=== PATIENT | female | born 1965 | race Caucasian/White ===

== ENCOUNTER 2018-04-19 09:35 | Emergency (ER) | payer OTHER, SELFPAY ==
[2018-04-19 09:37] VITALS: BP 158/85; PULSE 90; RESP 18; TEMP 37; O2SAT 97
--- NOTE | 2018-04-19 10:04 | DI.US_ITS ---
SYMPTOM/DIAGNOSIS: LT LEG SWELLING, PALPABLE CORD, REDNESS, PAIN LEFT LOWER EXTREMITY ULTRASOUND: The deep veins of the left lower extremity show normal compression, augmentation and color flow. No evidence of a deep venous thrombus is identified. There is thrombus seen in various superficial veins including the mid portion of the small saphenous vein and the distal greater saphenous vein. There is non occlusive thrombus seen in the mid greater saphenous vein. No evidence of a popliteal cyst is seen. IMPRESSION: 1. No evidence of a left lower extremity deep venous thrombus. 2. Superficial thrombophlebitis.
--- NOTE | 2018-04-19 10:05 | W.ED.GENAD ---
Discharge Plan Discharge Details Chief Complaint: Orthopedic Primary Care Provider: Tyler Kaiser ED Provider: Manas Warner Home Meds and New Rx's Prescriptions: No Action tamoxifen 20 MG tablet 20 mg PO DAILY RF: 0 esomeprazole magnesium [Nexium] 40 MG capsule,delayed release(DR/EC) 40 mg PO DAILY RF: 0 citalopram 20 MG tablet 20 mg PO DAILY Qty: 90 RF: 3 gabapentin 100 MG capsule 100 mg PO q day -BID Qty: 60 RF: 0 Medical Decision Making Delightful 52-year-old female presents with days of left lower extremity pain and swelling after [id number] [place], [place]. She is well-appearing with normal vital signs, her exam reveals a palpable cord and erythema overlying the medial aspect of her left lower thigh & knee. Highly concerning for DVT. Patient underwent ultrasound which shows superficial venous thrombosis of the greater saphenous and lesser saphenous vein without evidence of true DVT. Screening laboratories including CBC, comprehensive panel with LFTs and PT/INR are unremarkable. There is concern that she may progress to true DVT; discussed with the patient that I will have her use moist heat and begin a daily aspirin. She has planned follow-up this coming Friday, and I will have her discuss repeat ultrasound with her primary care office. She will follow-up in primary care clinic Friday as planned. Lab Data Lab results reviewed: Yes I reviewed the patient's lab results. HPI General Mode of arrival: ambulatory. Date/Time Provider Initiated Documentation: 04/19/18 09:57. Limitations to Documentation: no limitations. Information obtained by: patient. History of Present Illness 52 year old F presents to the emergency department with the chief complaint of Left leg swelling, described as moderate, Quality is described as aching, and is localized to the left and lower extremity. Patient reports no radiation. Patient started experiencing this day(s) and it has been constant. No relieving factors improve symptom(s), No exacerbating factors reported . Patient notes no other symptoms.; denies cough and shortness of breath. Patient did receive the following treatments prior to arrival, none HPI Narrative: 52-year-old female on tamoxifen for stable breast cancer, who [place] [facility], driving home and they are in between, for a [employer] game. She presents with the gradual onset of left lower extremity pain and swelling from the distal thigh to below the knee over days time. It has been constant, without associated fever or constitutional symptoms. She has no chest pain or shortness of breath. No history of DVT. She denies any other complaints Related Data Home Medications Medication Instructions Recorded Confirmed tamoxifen 20 mg PO DAILY tab-cap 09/14/14 04/19/18 esomeprazole magnesium [Nexium] 40 mg PO DAILY 05/22/15 04/19/18 citalopram 20 mg PO DAILY #90 tab-cap 02/04/18 04/19/18 gabapentin 100 mg PO q day -BID #60 tab-cap 03/10/18 04/19/18 Previous Rx's Medication Instructions Recorded citalopram 20 mg PO DAILY #90 tab-cap 02/04/18 gabapentin 100 mg PO q day -BID #60 tab-cap 03/10/18 Allergies Allergy/AdvReac Type Severity Reaction Status Date / Time No Known Drug Allergies Allergy Unverified 04/19/18 09:39 General Stated Complaint: Orthopedic DARIEL: 3 Review of Systems Review of Systems 7 systems reviewed and otherwise neg PFSH Family History Mother No problems noted. Father Atherosclerosis of coronary artery Grandmother Personal history of malignant neoplasm Maternal Cousin Breast cancer Maternal Cousin Breast cancer Other Depression Social History Smoking/Tobacco Use Status: Former Tobacco Use Surgical History Breast, Lumpectomy (06/22/13) section Ligation of fallopian tube Exam Narrative Exam Narrative: GEN: awake, alert, oriented 3. Pleasant, well groomed, interactive. HEAD: Normocephalic, atraumatic ENT: Mucous membranes moist, oropharynx unremarkable, External ear exam unremarkable EYES: PERRL, EOMI NECK: Full ROM, no WILLIAM, no menigismus CHEST/RESP: Nontender, clear to auscultation bilateral, no wheeze/rhonchi/rales CARDIOVASCULAR: RRR, no murmur, rub lyubov. 2+ Rad pulse bilateral ABDOMEN: Soft, nontender, no mass. +Bowel sounds EXT: Full ROM, the left medial thigh, popliteal crease and proximal calf medially are erythematous with palpable cord and tenderness. Normal distal motor, sensory, vascular testing Neuro: Grossly normal neurologic exam, conversant, interactive. Psych: Speech fluent, thoughts congruent, affect normal Course Vital Signs Temperature 37 C 04/19/18 09:37 Pulse 90 04/19/18 09:37 Respiratory Rate 18 04/19/18 09:37 Blood Pressure 158/85 H 04/19/18 09:37 Pulse Oximetry 97 04/19/18 09:37 Temperature 37 C 04/19/18 09:37 Temperature Source Temporal Artery Scan 04/19/18 09:37 Pulse 90 04/19/18 09:37 Respiratory Rate 18 04/19/18 09:37 Respiratory Effort 04/19/18 09:39 Blood Pressure 158/85 H 04/19/18 09:37 Pulse Oximetry 97 04/19/18 09:37 Oxygen Delivery Method Room Air 04/19/18 09:37 Oxygen Flow Rate 0 04/19/18 09:37 Pain Level 7 04/19/18 09:37
--- NOTE | 2018-04-19 10:10 | ED.GENADUL_ITS ---
Discharge Plan Discharge Details Chief Complaint: Orthopedic Primary Care Provider: Tyler Kaiser ED Provider: Manas Warner Home Meds and New Rx's Prescriptions: No Action tamoxifen 20 MG tablet 20 mg PO DAILY RF: 0 esomeprazole magnesium [Nexium] 40 MG capsule,delayed release(DR/EC) 40 mg PO DAILY RF: 0 citalopram 20 MG tablet 20 mg PO DAILY Qty: 90 RF: 3 gabapentin 100 MG capsule 100 mg PO q day -BID Qty: 60 RF: 0 Medical Decision Making Delightful 52-year-old female presents with days of left lower extremity pain and swelling after [facility] [place], [place]. She is well-appearing with normal vital signs, her exam reveals a palpable cord and erythema overlying the medial aspect of her left lower thigh & knee. Highly concerning for DVT. Patient underwent ultrasound which shows superficial venous thrombosis of the greater saphenous and lesser saphenous vein without evidence of true DVT. Screening laboratories including CBC, comprehensive panel with LFTs and PT/INR are unremarkable. There is concern that she may progress to true DVT; discussed with the patient that I will have her use moist heat and begin a daily aspirin. She has planned follow-up this coming Friday, and I will have her discuss repeat ultrasound with her primary care office. She will follow-up in primary care clinic Friday as planned. Lab Data Lab results reviewed: Yes I reviewed the patient's lab results. HPI General Mode of arrival: ambulatory . Date/Time Provider Initiated Documentation: 04/19/18 09:57 . Limitations to Documentation: no limitations . Information obtained by: patient . History of Present Illness 52 year old F presents to the emergency department with the chief complaint of Left leg swelling, described as moderate, Quality is described as aching, and is localized to the left and lower extremity. Patient reports no radiation. Patient started experiencing this day(s) and it has been constant. No relieving factors improve symptom(s), No exacerbating factors reported . Patient notes no other symptoms.; denies cough and shortness of breath. Patient did receive the following treatments prior to arrival, none HPI Narrative: 52-year-old female on tamoxifen for stable breast cancer, who [place] [facility], driving home and they are in between, for a [employer] game. She presents with the gradual onset of left lower extremity pain and swelling from the distal thigh to below the knee over days time. It has been constant, without associated fever or constitutional symptoms. She has no chest pain or shortness of breath. No history of DVT. She denies any other complaints Related Data Home Medications Medication Instructions Recorded Confirmed tamoxifen 20 mg PO DAILY tab-cap 09/14/14 04/19/18 esomeprazole magnesium [Nexium] 40 mg PO DAILY 05/22/15 04/19/18 citalopram 20 mg PO DAILY #90 tab-cap 02/04/18 04/19/18 gabapentin 100 mg PO q day -BID #60 tab-cap 03/10/18 04/19/18 Previous Rx's Medication Instructions Recorded citalopram 20 mg PO DAILY #90 tab-cap 02/04/18 gabapentin 100 mg PO q day -BID #60 tab-cap 03/10/18 Allergies Allergy/AdvReac Type Severity Reaction Status Date / Time No Known Drug Allergies Allergy Unverified 04/19/18 09:39 General Stated Complaint: Orthopedic DARIEL: 3 Review of Systems Review of Systems 7 systems reviewed and otherwise neg PFSH Family History Mother No problems noted. Father Atherosclerosis of coronary artery Grandmother Personal history of malignant neoplasm Maternal Cousin Breast cancer Maternal Cousin Breast cancer Other Depression Social History Smoking/Tobacco Use Status: Former Tobacco Use Surgical History Breast, Lumpectomy (06/22/13) section Ligation of fallopian tube Exam Narrative Exam Narrative: GEN: awake, alert, oriented 3. Pleasant, well groomed, interactive. HEAD: Normocephalic, atraumatic ENT: Mucous membranes moist, oropharynx unremarkable, External ear exam unremarkable EYES: PERRL, EOMI NECK: Full ROM, no WILLIAM, no menigismus CHEST/RESP: Nontender, clear to auscultation bilateral, no wheeze/rhonchi/rales CARDIOVASCULAR: RRR, no murmur, rub lyubov. 2+ Rad pulse bilateral ABDOMEN: Soft, nontender, no mass. +Bowel sounds EXT: Full ROM, the left medial thigh, popliteal crease and proximal calf medially are erythematous with palpable cord and tenderness. Normal distal motor, sensory, vascular testing Neuro: Grossly normal neurologic exam, conversant, interactive. Psych: Speech fluent, thoughts congruent, affect normal Course Vital Signs Temperature 37 C 04/19/18 09:37 Pulse 90 04/19/18 09:37 Respiratory Rate 18 04/19/18 09:37 Blood Pressure 158/85 H 04/19/18 09:37 Pulse Oximetry 97 04/19/18 09:37 Temperature 37 C 04/19/18 09:37 Temperature Source Temporal Artery Scan 04/19/18 09:37 Pulse 90 04/19/18 09:37 Respiratory Rate 18 04/19/18 09:37 Respiratory Effort 04/19/18 09:39 Blood Pressure 158/85 H 04/19/18 09:37 Pulse Oximetry 97 04/19/18 09:37 Oxygen Delivery Method Room Air 04/19/18 09:37 Oxygen Flow Rate 0 04/19/18 09:37 Pain Level 7 04/19/18 09:37
[2018-04-19 10:28] LABS: Abs Immature Grans 0.02 k/cumm (0.0-0.09); Absolute Basophil Count 0.02 k/cumm (0.0-0.2); Absolute Eosinophil Count 0.21 k/cumm (0.0-0.7); Absolute Lymphocyte Count 1.56 k/cumm (1.2-3.4); Absolute Monocyte Count 0.43 k/cumm (0.11-0.7); Absolute Neutrophil Count 3.24 k/cumm (1.2-6.7); Basophils % 0.4; Eosinophils % 3.8; HCT 40.2 % (36.0-46.0); HGB 12.7 g/dL (12.0-15.5); Immature Grans % 0.4; Lymphocytes % 28.5; Mean Corp. HGB Concentration 31.6 g/dL (32.0-36.0); Mean Corpuscular Hemoglobin 28.1 pg (27.0-33.0); Mean Corpuscular Volume 88.9 fL (80-95); Mean Platelet Volume 9.8 fL (8.0-11.0); Monocytes % 7.8; Neutrophils % 59.1; Platelet Count 220 x1000/uL (130-400); RBC 4.52 m/cumm (4.00-5.20); RBC Distribution Width 15.7 % (11.7-14.6); White Blood Cell Count 5.48 k/cumm (4.4-10.8)
[2018-04-19 10:39] LABS: Prothrombin Time 9.5 sec (9.3-10.8)
[2018-04-19 10:42] LABS: ALT 36 U/L (12-78); AST 27 U/L (15-37); Albumin 3.3 g/dL (3.4-5.0); Alkaline Phosphatase 112 U/L (46-116); Anion Gap 7.3 mmol/L (3-11); BUN 15 mg/dL (7-18); Bilirubin, Total 0.3 mg/dL (0.2-1.0); CO2 29.7 mmol/L (21.0-32.0); CREATININE 0.94 mg/dL (0.55-1.02); Calcium 9.4 mg/dL (8.5-10.1); Chloride 103 mmol/L (98-107); Glucose 86 mg/dL (70-100); Potassium 4.1 mmol/L (3.5-5.1); Sodium 140 mmol/L (136-145)
[2018-04-19 11:37] VITALS: BP 158/85; PULSE 90; RESP 18; TEMP 37; O2SAT 97
--- NOTE | 2018-04-19 11:53 | DI.VRAD_ITS ---
EXAM: US Duplex Left Lower Extremity Veins EXAM DATE/TIME: 04/19/2018 10:05 AM CLINICAL HISTORY: 52 years old, female; Pain; Other: Left leg swelling, palpable cord TECHNIQUE: Real-time ultrasound scan of the veins on the Left lower extremity with 2-D perez scale, color Doppler flow and spectral waveform analysis. Examination was focused on the left lower extremity. COMPARISON: No relevant prior studies available. FINDINGS: Left deep veins: Unremarkable. No DVT in the common femoral, femoral or popliteal veins. There is positive augmention. Left superficial veins: Superficial thrombus at multiple levels, with occlusion of the left mid small saphenous vein and left distal greater saphenous vein. Nonocclusive thrombus in the mid greater saphenous vein. Soft tissues: Unremarkable. No popliteal cyst. IMPRESSION: 1. Superficial thrombus at multiple levels, with occlusion of the left mid small saphenous vein and left distal greater saphenous vein. Nonocclusive thrombus in the mid greater saphenous vein. 2. Negative for deep venous thrombosis. Dictated and Authenticated by: Alana Barkley MD. Ordering:JERSON ANDERSEN MD
== END 2018-04-19 11:38 | disposition home or self-care (01) ==
PROVIDERS: Emergency Provider Emergency Medicine; PCP Family Medicine
DX: I80.02 Phlebitis and thrombophlebitis of superficial vessels of left lower extremity (principal)
CPT/HCPCS: 36415; 80053; 99284; 85025; 85610; 93971; 99282

== ENCOUNTER 2018-05-05 17:55 | Emergency (ER) | payer OTHER, SELFPAY ==
[2018-05-05 18:38] VITALS: BP 133/83; PULSE 68; RESP 14; TEMP 37.1; O2SAT 99
--- NOTE | 2018-05-05 20:05 | W.ED.GENAD ---
Discharge Plan Disposition Patient Disposition: HOME Condition: Good Discharge Details Chief Complaint: Vascular Clinical Impression: Thrombophlebitis of left lower extremity Primary Care Provider: yTler Kaiser ED Provider: Kane Norwood Home Meds and New Rx's Prescriptions: New rivaroxaban [Xarelto] 10 mg tablet 10 mg PO DAILY Qty: 20 RF: 0 Continue gabapentin 100 mg capsule 100 mg PO q day -BID Qty: 180 RF: 1 tamoxifen 20 MG tablet 20 mg PO DAILY RF: 0 esomeprazole magnesium [Nexium] 40 MG capsule,delayed release(DR/EC) 40 mg PO DAILY RF: 0 citalopram 20 MG tablet 20 mg PO DAILY Qty: 90 RF: 3 Discontinued aspirin 325 mg tablet 325 mg PO DAILY RF: 0 Discharge Instructions Instructions: Rivaroxaban (By mouth) Additional Instructions: Discontinue the aspirin and do not use any type of NSAID medication while on Xarelto. Use Tylenol if needed for pain. Continue warm compresses. Ultrasound ordered for tomorrow, radiology should contact you with time. Follow up with PCP Friday (case management will help facilitate). Return to ED for any chest pain, shortness of breath, fainting, bleeding, head injury. Referrals: Tyler Kaiser. [Primary Care Provider] - Medical Decision Making Patient with evidence of worsening superficial thrombophlebitis as well as palpable cord in the proximal greater saphenous in the medial thigh. She has been using warm compresses and full dose aspirin a day. She has not had fevers, shortness of breath, chest pain. However, she does have a prior history of cancer but has been in remission for at least 4 years. Concern for DVT despite negative ultrasound on the . The fact that she has a palpable cord in the medial thigh is highly suggestive of greater saphenous involvement near the femoral vein. She also has worsening superficial thrombophlebitis despite aspirin. She does not look toxic. I do not think she has supprative thrombophlebitis. I do not think she needs antibiotics. I do think she should probably be started on Xarelto. We will schedule an ultrasound for tomorrow. Will have follow-up with her primary care this week. Laboratory studies ordered prior to starting Xarelto. CBC, liver function, kidney function were all normal. Discussed the risk and benefit of starting Xarelto. Discussed what to do return to the emergency department for. Ultrasound ordered for tomorrow. Patient placed on care management list to help facilitate follow-up with primary care this week on Friday. Medical Records Medical records reviewed: Yes I reviewed the patient's medical records. Lab Data Lab results reviewed: Yes I reviewed the patient's lab results. HPI General Mode of arrival: ambulatory. Date/Time Provider Initiated Documentation: 05/05/18 19:28. Limitations to Documentation: no limitations. Information obtained by: patient and old records reviewed. HPI Narrative: Patient presents to ED with worsening thrombophlebitis to the left lower extremity. She was seen here previously on April 19 and diagnosed with superficial thrombophlebitis involving the small saphenous and distal greater saphenous vein. She was put on warm compresses and nonsteroidals. Over the last week she has had increased areas of pain, redness. She now has it anteriorly on her thigh as well as posteriorly and more medially. She does not have deep leg pain. She does not have leg swelling. She has not have chest pain, shortness of breath, cough, fever. Previous ultrasound from the was negative for DVT Related Data Home Medications Medication Instructions Recorded Confirmed tamoxifen 20 mg PO DAILY tab-cap 09/14/14 05/05/18 esomeprazole magnesium [Nexium] 40 mg PO DAILY 05/22/15 05/05/18 citalopram 20 mg PO DAILY #90 tab-cap 02/04/18 05/05/18 gabapentin 100 mg capsule 100 mg PO q day -BID #180 tab-cap 04/24/18 05/05/18 rivaroxaban [Xarelto] 10 mg PO DAILY #20 tab 05/05/18 Previous Rx's Medication Instructions Recorded citalopram 20 mg PO DAILY #90 tab-cap 02/04/18 gabapentin 100 mg capsule 100 mg PO q day -BID #180 tab-cap 04/24/18 rivaroxaban [Xarelto] 10 mg PO DAILY #20 tab 05/05/18 Allergies Allergy/AdvReac Type Severity Reaction Status Date / Time No Known Drug Allergies Allergy Verified 05/05/18 18:43 General Stated Complaint: Vascular DARIEL: 3 Review of Systems Constitutional Denies chills, Denies fatigue, Denies fever(s), Denies headache(s) and Denies malaise Eyes Denies eye discharge, Denies loss of vision and Denies eye pain ENT Denies otalgia, Denies headache(s) and Denies sore throat Cardiovascular Denies chest pain, Denies diaphoresis, Denies syncope, Denies pedal edema, Denies leg edema, Denies lightheadedness, Denies palpitations and Denies dyspnea Respiratory Denies cough and Denies dyspnea Gastrointestinal Denies abdominal pain, Denies melena, Denies hematochezia, Denies coffee ground emesis, Denies diarrhea, Denies nausea and Denies vomiting Genitourinary Denies hematuria and Denies dysuria Musculoskeletal Denies back pain, Denies myalgias, Denies arthralgias and Denies numbness Integumentary/Breasts Denies new lesions, Reports erythema, Denies rash, Denies sores and Denies wounds Neurologic Denies syncope, Denies headache(s), Denies focal weakness, Denies loss of vision and Denies numbness Endocrine Denies fatigue and Denies palpitations PFSH Family History Mother No problems noted. Father Atherosclerosis of coronary artery Grandmother Personal history of malignant neoplasm Maternal Cousin Breast cancer Maternal Cousin Breast cancer Other Depression Social History frequency: 3-4 times per week duration: 15-30 minutes/day Smoking/Tobacco Use Status: Former Tobacco Use alcohol intake: current alcohol intake frequency: holidays/special occasions only substance use type: does not use seatbelt use: always Surgical History Breast, Lumpectomy (06/22/13) section Ligation of fallopian tube Exam Const General: cooperative and no acute distress Nutritional Appearance: obese Orientation: alert and oriented x3 [facility] Head: normocephalic and atraumatic Neck Neck: normal visual inspection, full ROM, trachea midline and supple Resp Effort & Inspection: normal respiratory effort Auscultation: clear to auscultation bilaterally Cardio Rate: regular rate Rhythm: regular rhythm Heart Sounds: S1 normal and S2 normal Skin General skin exam: erythema (Areas of streaking erythema anterior, posterior, medial thigh) Lesions: no lesions Rashes: no rashes Neuro General: alert, oriented x3, no focal motor deficits and CN's II-XI intact bilaterally Extrem General: normal to inspection, full ROM, no calf tenderness, no edema and other (Palpable cords associated with the areas of streaking erythema especially in the medial aspect of the thigh appear, minimally tender.) Course Vital Signs Temperature 98.8 F 05/05/18 18:38 Pulse 68 10 18:38 Respiratory Rate 14 05/05/18 18:38 Blood Pressure 133/83 10 18:38 Pulse Oximetry 99 05/05/18 18:38 Temperature 98.8 F 05/05/18 18:38 Temperature Source Temporal Artery Scan 05/05/18 18:38 Pulse 68 10 18:38 Respiratory Rate 14 05/05/18 18:38 Respiratory Effort Non-Labored 05/05/18 18:41 Blood Pressure 133/83 05/05/18 18:38 Blood Pressure Position Sitting 05/05/18 18:38 Pulse Oximetry 99 05/05/18 18:38 Oxygen Delivery Method Room Air 05/05/18 18:38 Oxygen Flow Rate 0 05/05/18 18:38 Pain Level 6 05/05/18 18:38
--- NOTE | 2018-05-05 20:12 | ED.GENADUL_ITS ---
Discharge Plan Disposition Patient Disposition: HOME Condition: Good Discharge Details Chief Complaint: Vascular Clinical Impression: Thrombophlebitis of left lower extremity Primary Care Provider: Tyler Kaiser ED Provider: Kane Norwood Home Meds and New Rx's Prescriptions: New rivaroxaban [Xarelto] 10 mg tablet 10 mg PO DAILY Qty: 20 RF: 0 Continue gabapentin 100 mg capsule 100 mg PO q day -BID Qty: 180 RF: 1 tamoxifen 20 MG tablet 20 mg PO DAILY RF: 0 esomeprazole magnesium [Nexium] 40 MG capsule,delayed release(DR/EC) 40 mg PO DAILY RF: 0 citalopram 20 MG tablet 20 mg PO DAILY Qty: 90 RF: 3 Discontinued aspirin 325 mg tablet 325 mg PO DAILY RF: 0 Discharge Instructions Instructions: Rivaroxaban (By mouth) Additional Instructions: Discontinue the aspirin and do not use any type of NSAID medication while on Xarelto. Use Tylenol if needed for pain. Continue warm compresses. Ultrasound ordered for tomorrow, radiology should contact you with time. Follow up with PCP Friday (case management will help facilitate). Return to ED for any chest pain, shortness of breath, fainting, bleeding, head injury. Referrals: Tyler Kaiser. [Primary Care Provider] - Medical Decision Making Patient with evidence of worsening superficial thrombophlebitis as well as palpable cord in the proximal greater saphenous in the medial thigh. She has been using warm compresses and full dose aspirin a day. She has not had fevers , shortness of breath, chest pain. However, she does have a prior history of cancer but has been in remission for at least 4 years. Concern for DVT despite negative ultrasound on the . The fact that she has a palpable cord in the medial thigh is highly suggestive of greater saphenous involvement near the femoral vein. She also has worsening superficial thrombophlebitis despite aspirin. She does not look toxic. I do not think she has supprative thrombophlebitis. I do not think she needs antibiotics. I do think she should probably be started on Xarelto. We will schedule an ultrasound for tomorrow. Will have follow-up with her primary care this week. Laboratory studies ordered prior to starting Xarelto. CBC, liver function, kidney function were all normal. Discussed the risk and benefit of starting Xarelto. Discussed what to do return to the emergency department for. Ultrasound ordered for tomorrow. Patient placed on care management list to help facilitate follow-up with primary care this week on Friday. Medical Records Medical records reviewed: Yes I reviewed the patient's medical records. Lab Data Lab results reviewed: Yes I reviewed the patient's lab results. HPI General Mode of arrival: ambulatory . Date/Time Provider Initiated Documentation: 05/05/18 19:28 . Limitations to Documentation: no limitations . Information obtained by: patient and old records reviewed . HPI Narrative: Patient presents to ED with worsening thrombophlebitis to the left lower extremity. She was seen here previously on April 19 and diagnosed with superficial thrombophlebitis involving the small saphenous and distal greater saphenous vein. She was put on warm compresses and nonsteroidals. Over the last week she has had increased areas of pain, redness. She now has it anteriorly on her thigh as well as posteriorly and more medially. She does not have deep leg pain. She does not have leg swelling. She has not have chest pain, shortness of breath, cough, fever. Previous ultrasound from the was negative for DVT Related Data Home Medications Medication Instructions Recorded Confirmed tamoxifen 20 mg PO DAILY tab-cap 09/14/14 05/05/18 esomeprazole magnesium [Nexium] 40 mg PO DAILY 05/22/15 05/05/18 citalopram 20 mg PO DAILY #90 tab-cap 02/04/18 05/05/18 gabapentin 100 mg capsule 100 mg PO q day -BID #180 tab-cap 04/24/18 05/05/18 rivaroxaban [Xarelto] 10 mg PO DAILY #20 tab 05/05/18 Previous Rx's Medication Instructions Recorded citalopram 20 mg PO DAILY #90 tab-cap 02/04/18 gabapentin 100 mg capsule 100 mg PO q day -BID #180 tab-cap 04/24/18 rivaroxaban [Xarelto] 10 mg PO DAILY #20 tab 05/05/18 Allergies Allergy/AdvReac Type Severity Reaction Status Date / Time No Known Drug Allergies Allergy Verified 05/05/18 18:43 General Stated Complaint: Vascular DARIEL: 3 Review of Systems Constitutional Denies chills, Denies fatigue, Denies fever(s), Denies headache(s) and Denies malaise Eyes Denies eye discharge, Denies loss of vision and Denies eye pain ENT Denies otalgia, Denies headache(s) and Denies sore throat Cardiovascular Denies chest pain, Denies diaphoresis, Denies syncope, Denies pedal edema, Denies leg edema, Denies lightheadedness, Denies palpitations and Denies dyspnea Respiratory Denies cough and Denies dyspnea Gastrointestinal Denies abdominal pain, Denies melena, Denies hematochezia, Denies coffee ground emesis, Denies diarrhea, Denies nausea and Denies vomiting Genitourinary Denies hematuria and Denies dysuria Musculoskeletal Denies back pain, Denies myalgias, Denies arthralgias and Denies numbness Integumentary/Breasts Denies new lesions, Reports erythema, Denies rash, Denies sores and Denies wounds Neurologic Denies syncope, Denies headache(s), Denies focal weakness, Denies loss of vision and Denies numbness Endocrine Denies fatigue and Denies palpitations PFSH Family History Mother No problems noted. Father Atherosclerosis of coronary artery Grandmother Personal history of malignant neoplasm Maternal Cousin Breast cancer Maternal Cousin Breast cancer Other Depression Social History frequency: 3-4 times per week duration: 15-30 minutes/day Smoking/Tobacco Use Status: Former Tobacco Use alcohol intake: current alcohol intake frequency: holidays/special occasions only substance use type: does not use seatbelt use: always Surgical History Breast, Lumpectomy (06/22/13) section Ligation of fallopian tube Exam Const General: cooperative and no acute distress Nutritional Appearance: obese Orientation: alert and oriented x3 [facility] Head: normocephalic and atraumatic Neck Neck: normal visual inspection, full ROM, trachea midline and supple Resp Effort & Inspection: normal respiratory effort Auscultation: clear to auscultation bilaterally Cardio Rate: regular rate Rhythm: regular rhythm Heart Sounds: S1 normal and S2 normal Skin General skin exam: erythema (Areas of streaking erythema anterior, posterior, medial thigh) Lesions: no lesions Rashes: no rashes Neuro General: alert, oriented x3, no focal motor deficits and CN's II-XI intact bilaterally Extrem General: normal to inspection, full ROM, no calf tenderness, no edema and other (Palpable cords associated with the areas of streaking erythema especially in the medial aspect of the thigh appear, minimally tender.) Course Vital Signs Temperature 98.8 F 05/05/18 18:38 Pulse 68 10 18:38 Respiratory Rate 14 05/05/18 18:38 Blood Pressure 133/83 10 18:38 Pulse Oximetry 99 05/05/18 18:38 Temperature 98.8 F 05/05/18 18:38 Temperature Source Temporal Artery Scan 05/05/18 18:38 Pulse 68 10 18:38 Respiratory Rate 14 05/05/18 18:38 Respiratory Effort Non-Labored 05/05/18 18:41 Blood Pressure 133/83 05/05/18 18:38 Blood Pressure Position Sitting 05/05/18 18:38 Pulse Oximetry 99 05/05/18 18:38 Oxygen Delivery Method Room Air 05/05/18 18:38 Oxygen Flow Rate 0 05/05/18 18:38 Pain Level 6 05/05/18 18:38
[2018-05-05 20:24] LABS: Abs Immature Grans 0.01 k/cumm (0.0-0.09); Absolute Basophil Count 0.01 k/cumm (0.0-0.2); Absolute Eosinophil Count 0.24 k/cumm (0.0-0.7); Absolute Lymphocyte Count 1.57 k/cumm (1.2-3.4); Absolute Monocyte Count 0.39 k/cumm (0.11-0.7); Absolute Neutrophil Count 4.43 k/cumm (1.2-6.7); Basophils % 0.2; Eosinophils % 3.6; HCT 37.1 % (36.0-46.0); HGB 12.1 g/dL (12.0-15.5); Immature Grans % 0.2; Lymphocytes % 23.6; Mean Corp. HGB Concentration 32.6 g/dL (32.0-36.0); Mean Corpuscular Hemoglobin 28.4 pg (27.0-33.0); Mean Corpuscular Volume 87.1 fL (80-95); Mean Platelet Volume 9.3 fL (8.0-11.0); Monocytes % 5.9; Neutrophils % 66.5; Platelet Count 213 x1000/uL (130-400); RBC 4.26 m/cumm (4.00-5.20); RBC Distribution Width 15.2 % (11.7-14.6); White Blood Cell Count 6.65 k/cumm (4.4-10.8)
[2018-05-05 20:38] VITALS: BP 119/82; PULSE 75; RESP 18; TEMP 36.7; O2SAT 95
[2018-05-05 20:40] LABS: ALT 26 U/L (12-78); AST 24 U/L (15-37); Albumin 3.3 g/dL (3.4-5.0); Alkaline Phosphatase 102 U/L (46-116); Anion Gap 10.9 mmol/L (3-11); BUN 13 mg/dL (7-18); Bilirubin, Total 0.4 mg/dL (0.2-1.0); CO2 27.1 mmol/L (21.0-32.0); CREATININE 0.86 mg/dL (0.55-1.02); Calcium 8.8 mg/dL (8.5-10.1); Chloride 104 mmol/L (98-107); Glucose 84 mg/dL (70-100); Potassium 3.6 mmol/L (3.5-5.1); Sodium 142 mmol/L (136-145); Total Protein 6.8 g/dL (6.4-8.2)
[2018-05-05] MEDS: Rivaroxaban 10 MG TABLET PO (21:24)
--- NOTE | 2018-05-06 10:24 | PDOC.ERCMPRO ---
Care Management Progress Note 05/06/18-Pt seen on 05/05/18 for Left thrombophlebitis of lower extremity by Dr. Indira Norwood. Pt has scheduled ultrasound 05/06/18 . PCP dorothy/juan a blanchard for Friday with Dr. Lizz Kaiser at [facility] faxed.
== END 2018-05-05 21:26 | disposition home or self-care (01) ==
PROVIDERS: Emergency Provider Emergency Medicine; PCP Family Medicine
DX: I80.02 Phlebitis and thrombophlebitis of superficial vessels of left lower extremity (principal)
CPT/HCPCS: 36415; 80053; 99283; 85025

== ENCOUNTER 2018-05-06 10:06 | Outpatient (CLI) | payer OTHER, SELFPAY ==
--- NOTE | 2018-05-06 10:23 | DI.US_ITS ---
SYMPTOM/DIAGNOSIS: WORSENING SUPERFICIAL THROMBOPHLEBITIS, ? DVT LEFT LOWER EXTREMITY ULTRASOUND: The deep veins of the left lower extremity show normal compression, augmentation and color flow. There is a component of the greater saphenous vein which shows hypoechoic thrombus. The saphenofemoral junction appears unremarkable. No focal fluid collections are seen. IMPRESSION: 1. No evidence of a left lower extremity deep venous thrombus. 2. Superficial thrombophlebitis.
== END 2018-05-06 10:26 ==
PROVIDERS: PCP Family Medicine; Visit Provider Emergency Medicine
DX: I80.02 Phlebitis and thrombophlebitis of superficial vessels of left lower extremity (principal)
CPT/HCPCS: 93971

== ENCOUNTER 2018-07-17 00:57 | Outpatient (CLI) | payer OTHER, SELFPAY ==
--- NOTE | 2018-07-17 13:10 | DI.MAMMO_ITS ---
SYMPTOMS/DIAGNOSIS: SCREENING, PREVIOUS H/O BREAST CANCER ON RIGHT, C50.919 DIAGNOSTIC BILATERAL MAMMOGRAM: Comparison is made with exams from 2014 through 2017. The patient is status post lumpectomy in the upper outer quadrant of the right breast. The breasts are composed of scattered fibroglandular densities. No suspicious masses or suspicious microcalcifications are seen. There has been no significant change. IMPRESSION: Category 2B, negative mammogram with benign findings of post lumpectomy scarring in the upper outer quadrant of the right breast. Yearly screening mammography is recommended. SA ASSESSMENT OF FINDINGS: Negative with benign findings. Category 2. Patient will receive a letter notifying them of these results. BI-RADS category B. There are scattered areas of fibroglandular density.
== END 2018-07-17 01:17 ==
PROVIDERS: PCP Family Medicine; Visit Provider Family Medicine
DX: C50.411 Malignant neoplasm of upper-outer quadrant of right female breast (principal); Z98.890 Other specified postprocedural states; Z12.31 Encounter for screening mammogram for malignant neoplasm of breast
CPT/HCPCS: 77063; 77067

== ENCOUNTER 2018-07-17 08:10 | Outpatient (CLI) | payer OTHER, SELFPAY ==
[2018-07-17 12:26] LABS: Abs Immature Grans 0.01 k/cumm (0.0-0.09); Absolute Basophil Count 0.01 k/cumm (0.0-0.2); Absolute Eosinophil Count 0.11 k/cumm (0.0-0.7); Absolute Lymphocyte Count 1.42 k/cumm (1.2-3.4); Absolute Monocyte Count 0.33 k/cumm (0.11-0.7); Absolute Neutrophil Count 3.17 k/cumm (1.2-6.7); Basophils % 0.2; Eosinophils % 2.2; HCT 38.6 % (36.0-46.0); HGB 12.6 g/dL (12.0-15.5); Immature Grans % 0.2; Lymphocytes % 28.1; Mean Corp. HGB Concentration 32.6 g/dL (32.0-36.0); Mean Corpuscular Hemoglobin 28.9 pg (27.0-33.0); Mean Corpuscular Volume 88.5 fL (80-95); Mean Platelet Volume 9.7 fL (8.0-11.0); Monocytes % 6.5; Neutrophils % 62.8; Platelet Count 242 x1000/uL (130-400); RBC 4.36 m/cumm (4.00-5.20); RBC Distribution Width 15.5 % (11.7-14.6); White Blood Cell Count 5.05 k/cumm (4.4-10.8)
[2018-07-17 12:41] LABS: ALT 23 U/L (12-78); AST 20 U/L (15-37); Albumin 3.5 g/dL (3.4-5.0); Alkaline Phosphatase 93 U/L (46-116); BUN 14 mg/dL (7-18); Bilirubin, Total 0.4 mg/dL (0.2-1.0); CREATININE 0.93 mg/dL (0.55-1.02); Calcium 9.2 mg/dL (8.5-10.1); Chloride 103 mmol/L (98-107); Glucose 88 mg/dL (70-100); Sodium 138 mmol/L (136-145); Total Protein 7.1 g/dL (6.4-8.2)
== END 2018-07-17 08:30 ==
PROVIDERS: Internal Medicine Medical Oncology; PCP Family Medicine; Visit Provider Nurse Practitioner Family
DX: C50.411 Malignant neoplasm of upper-outer quadrant of right female breast (principal); Z17.0 Estrogen receptor positive status [ER+]
CPT/HCPCS: 36415; 80053; 85025

== ENCOUNTER 2018-07-17 13:02 | Outpatient (REF) | payer OTHER, SELFPAY ==
--- NOTE | 2018-07-17 11:25 | PAPFT_PTH ---
PATIENT: Nora Mendieta LOC: [facility] U#:[id number] AGE/SX: 52/F ROOM: RE07/17/[address]: SHARMILA Cabral : 1965 BED: DIS: 07/17/2018 SPEC #: [id number] RECD: 07/17/18 13:11 STATUS: TOMEKA REQ #: [id number] LEWIS: 07/17/18 11:[address]: Claudine May DEPT: [facility], [facility] Cytology RECD BY: Karla Yousif ENTERED: 07/17/18 13:11 SP TYPE: PAPFT OT DR: Tyler Kaiser MD Tissues: 1 - CX/ENDOCX FOR PAP SMEARS Procedures: PAP THIN PREP/UVM Screening HPV DNA PROBE Comments: [id number]
== END 2018-07-17 13:22 ==
LOC: LBN 13:02
PROVIDERS: PCP Family Medicine; Visit Provider Nurse Practitioner Family
DX: Z12.4 Encounter for screening for malignant neoplasm of cervix (principal); Z11.51 Encounter for screening for human papillomavirus (HPV)
CPT/HCPCS: 88142; 87624

== ENCOUNTER 2018-11-09 08:16 | Day surgery (SDC) | payer OTHER, SELFPAY ==
--- NOTE | 2018-11-09 06:36 | W.COLOREPORT ---
Date of service: 11/09/18 Time of Service: 09:07 Colonoscopy Report Date of procedure: 11/09/18 Pre-op diagnosis general: Family hx of colon cancer/ screening colonoscopy Post-op diagnosis procedure note: other (sigmoid polyps) Procedure: Colonoscopy with polypectomy Surgeon: Esther Woo Anesthesia proc note operative: other (General/ ASA 3/Rom Baig CRNA) Estimated blood loss (mL): 3 Pathology: other (Sigmoid polyps x2) Complications: None Disposition: same day Indications: Mrs. Mendieta is a pleasant 53 year old female seen in the office for her first Colonoscopy. He has a family history of colon cancer in her grandfather who was in his 60's. No Colon Cancer in a first degree relative. Risks, benefits and complications have been reviewed. Complications include but are not limited to bleeding, pain, perforation, missed small lesion/polyp, sore throat, aspiration and adverse reaction to the medications. Questions were entertained and answered to their satisfaction and they wished to proceed. No guarantees were given or implied. Prep: Miralax/Dulcolax Procedure Start Time: :07 Procedure End Time: 09:38 Retraction Time: 20 Findings: Small Hyperplastic appearing polyps in the sigmoid colon I was able to advance scope to the cecum. the appendiceal orifice was identified. I though I took a foto but none was printed Procedure Description: After informed consent was obtained the patient was taken to the procedure room and placed in a left decubitous position. Monitors were applied and a time out was done. The patients name, date of , procedure, allergies to medications and metal in their body was reviewed. The patient was then sedated. Once sedated and comfortable a rectal exam was done. External exam was normal. Internal exam revealed a normal sphincter tone and no palpable masses. The scope was then introduced and retro-flexed. Grade 1 internal hemorrhoids were identified. No polyps or masses noted in the rectum. The scope was then advanced to the cecum without difficulty. The TI and appendiceal orifice were identified. The prep was adequate. The scope was then slowly retracted over 20 minutes back into the rectum. Polyps were removed at in the sigmoid colon with cold forceps. The scope was removed and the patient was woken up and taken back to Same day surgery in stable condition. The patient tolerated the procedure well and there were no immediate complications. Follow up: The patient should follow up in 5 to 7 years unless they develop changes in bowel habits or other new gastrointestinal complaints.
--- NOTE | 2018-11-09 06:40 | PDOC.DSDIS_ITS ---
Discharge Plan Disposition Patient Disposition: HOME Condition: Good Discharge Details Reason For Visit: Colon Cancer Screening Attending Provider: Esther Woo Primary Care Provider: Tyler Kaiser Home Meds and New Rx's Prescriptions: Continued gabapentin 100 mg capsule 100 mg PO q day -BID Qty: 180 RF: 1 tamoxifen 20 MG tablet 20 mg PO DAILY RF: 0 esomeprazole magnesium [Nexium] 40 MG capsule,delayed release(DR/EC) 40 mg PO DAILY RF: 0 citalopram 20 MG tablet 20 mg PO DAILY Qty: 90 RF: 3 Discontinued polyethylene glycol 3350 17 gram/dose powder 238 g PO ONCE Qty: 238 RF: 0 bisacodyl [Dulcolax (bisacodyl)] 5 mg tablet,delayed release (DR/EC) 5 mg PO ONCE Qty: 4 RF: 0 Discharge Instructions Instructions: Colonoscopy (DC), Colorectal Polyps (DC) Additional Instructions: Findings: 2 small benign appearing polyps Follow up: 5-7 years Please call if you develop: fevers >101.5 Nausea or Vomiting Abdominal pain that is not transient DAY SURGERY UNIT POST COLONOSCOPY INSTRUCTIONS 1. Because there will be medication in your system for the next 24 hours, you may feel a little sleepy. Your coordination will be affected. Therefore: a. Do not drive or operate dangerous equipment for 24 hours. b. Do not drink alcohol beverages for 24 hours (not even beer). c. Plan to go home and rest for the day. 2. Generally there are no restrictions on your activity after a day or so has gone by, but you may feel a bit fatigued for a few days. 3 After you arrive home you may have a light meal and return to a normal diet as you can tolerate it without feeling sick to your stomach. 4. After surgery, you may feel pain or discomfort. This should be only samaniego sient, but if it persists please contact your doctor. 5. If there are any questions regarding the findings of your procedure, please feel free to contact your doctor. 6. If you are unable to contact your doctor with a problem, contact the hospital at [phone]. 7. Continue all your regular medications unless directed otherwise. I understand the above instructions and have no questions. Signature of Patient or Responsible Adult Escort Date/Time Name of Responsible Adult Escort Signature of Nurse Date/Time Stand Alone Forms: Sita William (DSU) Activity:: Activity as Tolerated Diet:: As Tolerated Discharge Orders Discharge Orders: Discharge Order (Routine); Ordered 11/09/18 Ordered By: Esther Woo DS: Diagnosis Discharge Diagnosis (1) S/P colonoscopy: Status: Acute (2) Colorectal polyps: Status: Acute
[2018-11-09 08:29] VITALS: BP 128/84; PULSE 77; RESP 16; TEMP 36.6; O2SAT 98
[2018-11-09] MEDS: Lactated Ringers 1,000 ML 80 ML IV (08:55)
--- NOTE | 2018-11-09 09:38 | BOWEL_PTH ---
PATIENT: Nora Mendieta LOC: [facility] U#:[id number] AGE/SX: 53/F ROOM: RE11/09/[address]: Esther Woo MD : 1965 BED: DIS: 11/09/2018 SPEC #: [id number] RECD: 11/09/18 12:47 STATUS: TOMEKA REQ #: [id number] LEWIS: 11/09/18 09:[address]: Esther Woo DEPT: Surgical Specimen RECD BY: Karla Yousif ENTERED: 11/09/18 12:48 SP TYPE: Bowel OTHR DR: Tyler Kaiser MD Tissues: 1 - BIOPSY BOWEL Procedures: GROSS AND MICRO LEVEL 4 Comments: [id number]
[2018-11-09 10:15] VITALS: BP 100/60; PULSE 57; RESP 16; TEMP 36.5; O2SAT 99
== END 2018-11-09 10:27 | disposition home or self-care (01) ==
LOC: SUR 08:17
PROVIDERS: PCP Family Medicine; Visit Provider Surgery
PROC: 0DJD8ZZ Inspection of Lower Intestinal Tract, Via Natural or Artificial Opening Endoscopic (ICD-10-PCS; CPT 45378; principal; 2018-11-09 08:45)
DX: Z12.11 Encounter for screening for malignant neoplasm of colon (principal); K63.5 Polyp of colon; K64.0 First degree hemorrhoids; Z80.0 Family history of malignant neoplasm of digestive organs; K21.9 Gastro-esophageal reflux disease without esophagitis
CPT/HCPCS: 45380; 88305; J3010

== ENCOUNTER 2019-08-12 00:51 | Outpatient (CLI) | payer OTHER, SELFPAY ==
--- NOTE | 2019-08-12 08:12 | DI.MAMMO_ITS ---
EXAM: MG MAMMO SCREENING 60 MIN DUR CLINICAL HISTORY: SCREENING, Z12.39, PERSONAL HX BREAST CA. TECHNIQUE: Full field digital CC and MLO mammographic images were obtained with 3D tomosynthesis and utilizing computer aided detection (CAD). COMPARISON: 2009 through 2017. FINDINGS: Breast Density - Category B - Scattered areas of fibroglandular density The patient is status post lumpectomy and radiation in the upper outer quadrant of the right breast. There is scarring in this area. There has been interval decrease in size of a previously noted xin gn circumscribed nodule in the subareolar right breast. No new masses or suspicious calcifications a re seen. There is motion on the left MLO view. Skin Thickening/Nipple Retraction: None. Axilla: Unremarkable. IMPRESSION: 1. Right breast BI-RADS category 2, negative with benign findings. No significant interval change wi th no specific features of malignancy noted. 2. Left breast BI-RADS category 0. A repeat left MLO is requested due to motion. A negative radiographic report should not delay biopsy if a dominant or clinically suspicious mass is present. Up to ten percent of cancers are not identified on mammography. A negative report may reinforce clinical impression. Adenosis and dense breasts may obscure an underlying neoplasm. False positive reports average 6 to 10%. Patient will receive a letter notifying them of these results.
== END 2019-08-12 01:11 ==
PROVIDERS: PCP Family Medicine; Visit Provider Family Medicine
DX: Z12.31 Encounter for screening mammogram for malignant neoplasm of breast (principal); Z85.3 Personal history of malignant neoplasm of breast; R92.8 Other abnormal and inconclusive findings on diagnostic imaging of breast; Z92.3 Personal history of irradiation
CPT/HCPCS: 77063; 77067

== ENCOUNTER 2019-08-12 01:36 | Outpatient (CLI) | payer OTHER, SELFPAY ==
[2019-08-12 09:25] LABS: Abs Immature Grans 0.01 k/cumm (0.0-0.09); Absolute Basophil Count 0.01 k/cumm (0.0-0.2); Absolute Eosinophil Count 0.09 k/cumm (0.0-0.7); Absolute Lymphocyte Count 1.17 k/cumm (1.2-3.4); Absolute Monocyte Count 0.33 k/cumm (0.11-0.7); Absolute Neutrophil Count 2.75 k/cumm (1.2-6.7); Basophils % 0.2; Eosinophils % 2.1; HCT 40.3 % (36.0-46.0); Immature Grans % 0.2 %; Lymphocytes % 26.8; Mean Corp. HGB Concentration 32.3 g/dL (32.0-36.0); Mean Platelet Volume 9.4 fL (8.0-11.0); Monocytes % 7.6; Neutrophils % 63.1; Platelet Count 292 x1000/uL (130-400); RBC 4.48 m/cumm (4.00-5.20); RBC Distribution Width 14.9 % (11.7-14.6); White Blood Cell Count 4.36 k/cumm (4.4-10.8)
[2019-08-12 09:36] LABS: ALT 24 U/L (14-59); AST 20 U/L (15-37); Albumin 3.3 g/dL (3.4-5.0); Alkaline Phosphatase 85 U/L (46-116); Anion Gap 7.9 mmol/L (3-11); BUN 11 mg/dL (7-18); Bilirubin, Total 0.3 mg/dL (0.2-1.0); CO2 29.1 mmol/L (21.0-32.0); CREATININE 0.83 mg/dL (0.55-1.02); Chloride 105 mmol/L (98-107); Glucose 122 mg/dL (74-106); Potassium 4.3 mmol/L (3.5-5.1); Sodium 142 mmol/L (136-145)
== END 2019-08-12 01:56 ==
PROVIDERS: PCP Family Medicine; Visit Provider Internal Medicine Hematology & Oncology
DX: C50.411 Malignant neoplasm of upper-outer quadrant of right female breast (principal); Z17.0 Estrogen receptor positive status [ER+]
CPT/HCPCS: 36415; 80053; 85025

== ENCOUNTER 2019-08-18 01:34 | Outpatient (CLI) | payer OTHER, SELFPAY ==
--- NOTE | 2019-08-18 10:15 | DI.MAMMO_ITS ---
EXAM: MG MAMMO SCREEN CALL BACK UNI CLINICAL HISTORY: F/U ABNL MAMMO, REPEAT LT MLO VIEW DUE TO MOTION. TECHNIQUE: Craniocaudal and mediolateral oblique Full Field Digital Mammography views of the left br east with Computer Aided Diagnosis followed by Tomosynthesis . COMPARISON: Priors available for comparison. FINDINGS: Mammography/Tomosynthesis: Masses/Architectural Distortion: None seen. Microcalcifictions: No suspicious pleomorphic-type are seen. Skin Thickening/Nipple Retraction: None. IMPRESSION: 1. No evidence of malignancy is noted. 2. Unless there is more urgent need, follow-up screening mammography is recommended, as per [place] [employer] guidelines. ACR BI-RAD Category- 1 Negative Breast Density - Category B - Scattered areas of fibroglandular density A negative radiographic report should not delay biopsy if a dominant or clinically suspicious mass is present. Up to ten percent of cancers are not identified on mammography. A negative report may reinforce clinical impression. Adenosis and dense breasts may obscure an underlying neoplasm. False positive reports average 6 to 10%. Patient will receive a letter notifying them of these results.
== END 2019-08-18 01:54 ==
PROVIDERS: PCP Family Medicine; Visit Provider Family Medicine
DX: Z12.31 Encounter for screening mammogram for malignant neoplasm of breast (principal); R92.8 Other abnormal and inconclusive findings on diagnostic imaging of breast; N64.59 Other signs and symptoms in breast
CPT/HCPCS: 77063; 77067

== ENCOUNTER 2019-09-02 12:31 | Outpatient (CLI) | payer OTHER, SELFPAY ==
--- NOTE | 2019-09-02 12:40 | DI.US_ITS ---
EXAM: US ABDOMEN CLINICAL HISTORY: RUQ abdominal pain, R10.11, ?gallstones TECHNIQUE: Ultrasound performed using standard protocol. COMPARISON: US LOWER EXTREMITY VASCULAR LT from 05/06/2018 FINDINGS: The visualized liver parenchyma is normal in appearance. There is cholelithiasis. Gallbladder wall is within normal limits and thickness. No pericholecystic fluid collection. No biliary dilatation. Negative sonographic Savage sign. The pancreas is unremarkable in appearance. Spleen is unremarkable. Kidneys are unremarkable with n o evidence of hydronephrosis or nephrolithiasis. Abdominal aorta and IVC are of normal diameter. IMPRESSION: Cholelithiasis. No other significant findings.
== END 2019-09-02 12:51 ==
PROVIDERS: PCP Family Medicine; Visit Provider Nurse Practitioner Family
DX: R10.11 Right upper quadrant pain (principal); K80.20 Calculus of gallbladder without cholecystitis without obstruction
CPT/HCPCS: 76700

== ENCOUNTER 2019-09-22 06:15 | Day surgery (SDC) | payer OTHER, SELFPAY ==
[2019-09-22] VITALS (9 sets, daily range): BP systolic 95–113; BP diastolic 49–77; PULSE 64–77; RESP 11–19; TEMP 35.8–36.7; O2SAT 94–100
[2019-09-22] MEDS: Acetaminophen 500 MG TAB 1000 MG PO (06:53)
[2019-09-22] MEDS: Celecoxib 200 MG CAP PO (06:53)
[2019-09-22] MEDS: Lactated Ringers 1,000 ML 80 ML IV ×2 (07:00→08:58)
[2019-09-22] MEDS: ceFAZolin 2 GM/50 ML BAG IVPB (07:52)
--- NOTE | 2019-09-22 08:41 | GB_PTH ---
PATIENT: Nora Mendieta LOC: [facility] U#:[id number] AGE/SX: 53/F ROOM: RE09/22/[address]: Esther Woo MD : 1965 BED: DIS: 09/22/2019 SPEC #: [id number] RECD: 09/22/19 12:29 STATUS: TOMEKA REQ #: [id number] LEWIS: 09/22/19 08:[address]: Esther Woo DEPT: Surgical Specimen RECD BY: Karla Yousif ENTERED: 09/22/19 12:29 SP TYPE: GB OTHR DR: Tyler Kaiser MD Tissues: 1 - GALLBLADDER Procedures: GROSS AND MICRO LEVEL 3 Comments: [id number]
[2019-09-22] MEDS: Bupivacaine 0.25% Pres-Free 30 ML VIAL (08:49)
--- NOTE | 2019-09-22 08:55 | PDOC.DSDIS_ITS ---
Discharge Plan Disposition Patient Disposition: HOME Condition: Good Discharge Details Reason For Visit: BILIARY COLIC Attending Provider: Esther Woo Primary Care Provider: Tyler Kaiser Home Meds and New Rx's Prescriptions: New acetaminophen [Tylenol] 325 mg capsule 650 mg PO Q6H PRN (Reason: pain) Qty: 30 RF: 0 ibuprofen 600 mg tablet 600 mg PO Q6H PRN (Reason: pain) Qty: 60 RF: 0 oxycodone 5 mg tablet 5 mg PO Q6H PRN (Reason: pain) Qty: 14 RF: 0 Continued tamoxifen 20 MG tablet 20 mg PO DAILY RF: 0 gabapentin 300 mg capsule 300 mg PO BID Qty: 60 RF: 5 clotrimazole-betamethasone [Lotrisone] 1-0.05 % cream 1 applic TP BID PRNRF: 0 citalopram 20 mg tablet 20 mg PO HS RF: 0 Discharge Instructions Instructions: Laparoscopic Cholecystectomy (DC) Additional Instructions: Activity at Home after surgery: 1. Make sure you walk outside at least 4 times per day 2. You should be able to climb a flight of stairs 3. No driving while in pain or taking pain medications 4. No strenuous activity or heavy lifting for 2 weeks (laparoscopic surgery) Diet, Nutrition, & wound healin. Avoid alcohol until after you are recovered from your surgery 2. Make sure to eat plenty of lean protein (meat, fish, eggs, cottage cheese, beans) 3. Eat a variety of fruits and vegetables. Eat plenty of high fiber foods to avoid constipation. 4. Drink plenty of liquids to stay hydrated and avoid constipation Pain Medications: 1. Alternate Tylenol 650 mg and Ibuprofen 600 mg every 3 hours 2. If a narcotic has been prescribed take as directed only for breakthrough pain For Constipation: 1. Take Milk of Magnesia or MiraLax as needed for constipation Other: 1. You may shower daily. Do not scrub the incisions 2. Do not soak the incisions for 1 week 3. You may alternate ice and heat as needed for pain and swelling Wound Care: 1. Keep the incisions clean and dry Please call our office if you develop: 1. Fevers >101.5 2. Nausea or Vomiting 3. Worsening pain 4. Redness and thick discharge from the wounds If after hours please call the Hospital at and ask to speak to the on-call surgeon Referrals: Esther Woo MD [ [facility] STAFF PHYSICIAN] - 10/08/19 9:00 am Activity:: No lifting, pulling and pushing >20 lb x 2 weeks Diet:: low fat Discharge Orders Discharge Orders: Discharge Order (Routine); Ordered 09/22/19 Ordered By: Esther Woo DS: Diagnosis Discharge Diagnosis (1) Biliary colic: Status: Acute (2) S/P laparoscopic cholecystectomy: Status: Acute
--- NOTE | 2019-09-22 09:06 | W.PM.OP ---
Date of service: 09/22/19 Time of Service: 09:07 Operative Note Operative Note DATE OF PROCEDURE: 09/22/19 PRE-OP DIAGNOSIS: Biliary Cholic POST-OP DIAGNOSIS: same PROCEDURE: Laparoscopic Cholecystectomy SURGEON: Esther Woo COMPRESSOR ENGINEER: Flaquita Pang ANESTHESIA: GETA ESTIMATED BLOOD LOSS: 50 PATHOLOGY: other (Galbladder) COMPLICATIONS: None Patient was transported to: PACU Patient's condition: stable Indications: Nora is a 53-year-old female who is had 3 attacks of right upper quadrant pain that radiates to her back. Ultrasound showed cholelithiasis without signs of acute or chronic inflammation. Her symptoms do sound like biliary colic even though it is not associated with eating. She does have a history of GERD as well but this feels different to her. She has no tenderness on exam today in the epigastric or right upper quadrant area Findings: Normal appearing Galbladder. Stones Procedure Description: After informed consent was obtained the patient was taken to the operating room, placed in a supine position and monitors were applied. SCDs were applied to her lower extremities and she was placed under general anesthesia and intubated without difficulty. Once intubated a Marina catheter was placed in a standard sterile fashion. Her abdomen was then prepped and draped in a sterile fashion using ChloraPrep. At this point a timeout was done and the patient's name, date of , procedure type, allergies to medications, metal in her body, antibiotic and DVT prophylaxis were reviewed. Fire risk was assessed. At this point 0.25% percent Bupivocaine mixed 50/50 with Exparel was injected just above the umbilicus into the dermis and subcutaneous tissue. A 5 mm incision was made with an 11 blade. The skin next to the incision was grasped with penetrating towel clamps and while pulling up on the skin a 5 mm port was placed under direct visualization. The abdomen was insufflated. The patient then became bradychardic and therefor the scope was removed and insufflation was released. The patient Heart Rate recovered. Once her Heart rate was back into the 60's the abdomen was insuflated again and then 3 more ports were placed. A 12 mm port was placed in the subxiphoid area and two 5 mm ports were placed in the right upper quadrant. The liver was inspected and looked normal. The patient's bed was then turned to the left and her head was brought up. The gallbladder was grasped at the body and pushed towards the right shoulder and this allowed me to visualize the neck of the gallbladder. The neck was grasped and pulled towards the right flank and down allowing me to visualize the lymph node. Using a [place] dissector with cautery the lymph node was gently dissected away from the tissues and the fatty tissue was also dissected away. The cystic duct was identified and it was normal in size. The duct was dissected 360 degrees using the [place] dissector in order for me to visualize its entrance into the gallbladder. Liver was noted behind it. There were no other structures right behind. The cystic artery was then identified medial to the cystic duct and dissected 360 degrees as well. Critical view was achieved. 3 clips were placed one proximal and 2 distal on the cystic duct first and the cystic duct was cut. 3 more clips were placed one proximal and 2 distal and the artery was cut. Using the hook dissector the gallbladder was then dissected away from the liver bed and placed into an Endo Catch bag and pulled through the 12 mm port site. The 12 mm port was placed back into the abdomen under direct visualization. The liver bed was inspected no bleeding was noted. The abdomen was then irrigated with a liter of normal saline until the effluent was clear. Once all the fluid was suctioned out, the 12 mm and the 2 right upper quadrant ports were removed under direct visualization and no bleeding was noted from the fascia. The abdomen was deflated completely and lastly the umbilical port was removed. The skin was cleaned and the incisions were closed with 4-0 Vicryl. The skin was dried and skin affix was applied over the closed incisions. Needle and sponge counts were correct at the end of the case. The Marina catheter was removed. At this point the patient was woken up, extubated and taken back to recovery in stable condition. There were no immediate complications.
[2019-09-22] MEDS: HYDROmorphone 2 MG/ML VIAL IVP ×2 (09:22→09:39)
[2019-09-22] MEDS: Normal Saline Flush 10 ML SYR IV (09:22)
== END 2019-09-22 13:32 | disposition home or self-care (01) ==
LOC: SUR 14:13
PROVIDERS: PCP Family Medicine; Visit Provider Surgery
PROC: 0FT44ZZ Resection of Gallbladder, Percutaneous Endoscopic Approach (ICD-10-PCS; CPT 47563; principal; 2019-09-22 07:30)
DX: K81.1 Chronic cholecystitis (principal); K21.9 Gastro-esophageal reflux disease without esophagitis; R10.84 Generalized abdominal pain
CPT/HCPCS: 47562; 88304; J0690; J1100; J1200; J1885; J2001; J2250; J2405; J2704; J3010

== ENCOUNTER 2020-08-15 21:48 | Outpatient (REF) | payer OTHER, SELFPAY ==
[2020-08-17 18:28] LABS: COVID-19 RT-PCR Result NEGATIVE (Negative)
== END 2020-08-15 22:08 ==
LOC: LBN 21:48
PROVIDERS: PCP Family Medicine; Visit Provider Nurse Practitioner Family
DX: Z20.828 Contact with and (suspected) exposure to other viral communicable diseases (principal)
CPT/HCPCS: U0003

== ENCOUNTER 2020-08-28 02:11 | Outpatient (CLI) | payer OTHER, SELFPAY ==
--- NOTE | 2020-08-28 06:55 | DI.MAMMO_ITS ---
EXAM: MG MAMMO SCREENING 60 MIN DUR CLINICAL HISTORY: breast cancer screening,PERSONAL H/O BREAST A,Z85.3 TECHNIQUE: Bilateral full field digital CC and MLO mammographic images were obtained with 3D tomosyn thesis and utilizing computer aided detection (CAD). COMPARISON: Available for comparison. FINDINGS: Masses/Architectural Distortion: The patient is status post right lumpectomy. There is a stable nodu lar density in the right retroareolar region. No suspicious masses are seen. Microcalcifications: No suspicious pleomorphic-type are seen. Skin Thickening/Nipple Retraction: None. IMPRESSION: 1. No significant interval change with no specific features of malignancy noted. 2. Unless there is more urgent need, screening mammography is recommended, as per [employer] guidelines. 3. Findings were discussed with the patient on the date of the examination. BI-RADS Category 1 - Negative Breast Density - Category B - Scattered areas of fibroglandular density Breast density category C or D implies that the patient has dense breast tissue. Dense breast tissue is very common and is not abnormal but dense breast tissue can make it harder to find cancer on a ma mmogram. Also, dense breast tissue may increase their breast cancer risk. This information about the result of the mammogram report was provided to the patient to raise their awareness. Use this report when you speak with the patient about their risks for breast cancer, which includes their family hist ory. At that time, you may recommend for more screening tests (Ultrasound or MRI) as they might be us eful based on their risk. A negative radiographic report should not delay biopsy if a dominant or clinically suspicious mass is present. Up to ten percent of cancers are not identified on mammography. A negative report may reinforce clinical impression. Adenosis and dense breasts may obscure an underlying neoplasm. False positive reports average 6 to 10%. Patient will receive a letter notifying them of these results.
== END 2020-08-28 02:31 ==
PROVIDERS: PCP Family Medicine; Visit Provider Family Medicine
DX: Z12.31 Encounter for screening mammogram for malignant neoplasm of breast (principal); Z85.3 Personal history of malignant neoplasm of breast
CPT/HCPCS: 77063; 77067

== ENCOUNTER 2020-09-21 03:17 | Outpatient (CLI) | payer OTHER, SELFPAY ==
[2020-09-21 13:57] LABS: Absolute Basophil Count 0.03 10^3/uL (0.0-0.2); Absolute Eosinophil Count 0.14 10^3/uL (0.0-0.7); Absolute Lymphocyte Count 1.66 10^3/uL (1.2-3.4); Absolute Monocyte Count 0.26 10^3/uL (0.1-0.8); Absolute Neutrophil Count 3.26 10^3/uL (1.2-6.7); Basophils % 0.6; Eosinophils % 2.6; HCT 38.7 % (36.0-46.0); HGB 12.6 g/dL (11.2-15.7); MCH 29.4 pg (27.0-33.0); MCHC 32.6 % (32.0-36.0); MCV 90.4 fL (80-95); MPV 9.3 fL (8.0-11.0); Monocytes % 4.9; Neutrophils % 60.9; Nucleated RBC 0 %; Platelet Count 251 10^3/uL (130-400); RBC 4.28 10^6/uL (3.93-5.22); RDW 14.2 % (11.7-14.6); RDW-SD 47.1 fL; WBC 5.35 10^3/uL (4.4-10.8)
[2020-09-21 14:16] LABS: ALT 16 U/L (14-59); AST 15 U/L (15-37); Albumin 3.5 g/dL (3.4-5.0); Alkaline Phosphatase 78 U/L (46-116); Anion Gap 7.3 mmol/L (3-11); BUN 15 mg/dL (7-18); Bilirubin, Total 0.4 mg/dL (0.2-1.0); CO2 26.7 mmol/L (21.0-32.0); CREATININE 0.9 mg/dL (0.55-1.02); Calcium 9.1 mg/dL (8.5-10.1); Chloride 103 mmol/L (98-107); Glucose 113 mg/dL (74-106); Potassium 3.4 mmol/L (3.5-5.1); Sodium 137 mmol/L (136-145); Total Protein 7.3 g/dL (6.4-8.2)
== END 2020-09-21 03:18 | disposition home or self-care (01) ==
LOC: LBO 03:17
PROVIDERS: Internal Medicine Hematology & Oncology; PCP Family Medicine; Visit Provider Nurse Practitioner Adult Health
DX: C50.411 Malignant neoplasm of upper-outer quadrant of right female breast (principal); Z17.0 Estrogen receptor positive status [ER+]
CPT/HCPCS: 36415; 80053; 85025

== ENCOUNTER 2020-10-27 17:49 | Outpatient (REF) | payer OTHER, SELFPAY ==
[2020-10-27 18:37] LABS: Hemoglobin A1C 5.1 % (<5.7)
[2020-10-27 18:40] LABS: Calculated LDL 95 mg/dL (<100); Cholesterol 181 mg/dL (<200); HDL Cholesterol 62 mg/dL (40-60); Potassium 4.5 mmol/L (3.5-5.1); Triglyceride 120 mg/dL (<150)
== END 2020-10-27 17:50 | disposition home or self-care (01) ==
LOC: NCHCN 17:49
PROVIDERS: PCP Family Medicine; Visit Provider Family Medicine
DX: E87.6 Hypokalemia (principal); Z00.00 Encounter for general adult medical examination without abnormal findings; R73.9 Hyperglycemia, unspecified
CPT/HCPCS: 80061; 83036; 84132

== ENCOUNTER 2021-03-22 12:32 | Outpatient (REF) | payer OTHER, SELFPAY ==
--- NOTE | 2021-03-22 11:40 | ENDOMET_PTH ---
PATIENT: Nora Mendieta LOC: [facility] U#:[id number] AGE/SX: 55/F ROOM: RE03/22/[address]: Ayla Pemberton MD : 1965 BED: DIS: 03/22/2021 SPEC #: [id number] RECD: 03/22/21 12:56 STATUS: TOMEKA REQ #: [id number] LEWIS: 03/22/21 11:[address]: Ayla Pemberton DEPT: Surgical Specimen RECD BY: Karla Yousif ENTERED: 03/22/21 12:57 SP TYPE: Endomet OTHR DR: Tyler Kaiser MD Tissues: 1 - ENDOMETRIUM BX/NOETTE Procedures: GROSS AND MICRO LEVEL 4 Comments: [id number]
== END 2021-03-22 12:33 | disposition home or self-care (01) ==
LOC: LBN 12:32
PROVIDERS: PCP Family Medicine; Visit Provider Obstetrics & Gynecology
DX: N84.0 Polyp of corpus uteri (principal); N95.0 Postmenopausal bleeding; N85.8 Other specified noninflammatory disorders of uterus
CPT/HCPCS: 88305

== ENCOUNTER 2021-06-25 02:24 | Outpatient (CLI) | payer OTHER, SELFPAY ==
[2021-06-25 11:01] LABS: Source Nasal/Nares
[2021-06-25 14:01] LABS: COVID-19 PCR Negative (Negative)
== END 2021-06-25 02:25 | disposition home or self-care (01) ==
LOC: LBO 02:24
PROVIDERS: PCP Family Medicine; Visit Provider Obstetrics & Gynecology
DX: Z20.822 Contact with and (suspected) exposure to COVID-19 (principal)
CPT/HCPCS: 87635

== ENCOUNTER 2021-06-25 03:02 | Outpatient (CLI) | payer OTHER, SELFPAY ==
[2021-06-25 08:49] LABS: Abs Immature Grans 0.03 10^3/uL (0.0-0.06); Absolute Basophil Count 0.02 10^3/uL (0.0-0.2); Absolute Eosinophil Count 0.18 10^3/uL (0.0-0.7); Absolute Lymphocyte Count 1.41 10^3/uL (1.2-3.4); Absolute Monocyte Count 0.34 10^3/uL (0.1-0.8); Absolute Neutrophil Count 3.11 10^3/uL (1.2-6.7); Basophils % 0.4; Eosinophils % 3.5; HCT 42.4 % (36.0-46.0); HGB 13.4 g/dL (11.2-15.7); Immature Grans % 0.6; Lymphocytes % 27.7; MCH 28.5 pg (27.0-33.0); MCHC 31.6 % (32.0-36.0); MPV 9.7 fL (8.0-11.0); Monocytes % 6.7; Neutrophils % 61.1; Nucleated RBC 0 %; Platelet Count 242 10^3/uL (130-400); RBC 4.71 10^6/uL (3.93-5.22); RDW 14.9 % (11.7-14.6); RDW-SD 49.7 fL; WBC 5.09 10^3/uL (4.4-10.8)
== END 2021-06-25 03:03 | disposition home or self-care (01) ==
LOC: LBO 03:02
PROVIDERS: PCP Family Medicine; Visit Provider Obstetrics & Gynecology
DX: Z01.818 Encounter for other preprocedural examination (principal)
CPT/HCPCS: 36415; 86850; 86900; 86901; 85025

== ENCOUNTER 2021-06-27 07:12 | Day surgery (SDC) | payer OTHER, SELFPAY ==
[2021-06-27 07:20] VITALS: BP 112/74; PULSE 68; RESP 18; TEMP 36; O2SAT 99
[2021-06-27] MEDS: Lactated Ringers 1,000 ML 125 ML IV (07:45)
--- NOTE | 2021-06-27 08:15 | W.ANESPRE ---
General Info Date of Service Date Performed: 06/27/21 Height: 5 ft 2.5 in Weight: 106.6 kg Body Mass Index (BMI): 42.3 Surgical Procedure: Operation Date: 06/27/21 08:40 Proposed Procedures Side Surgeon p Dilation & Curettage with Hysteroscopy Ayla Pemberton MD Meds Allergies and Home Medications Allergies Allergy/AdvReac Type Severity Reaction Status Date / Time No Known Drug Allergies Allergy Verified 06/27/21 07:26 Home Medication Medication Instructions Recorded acetaminophen [Tylenol] 650 mg PO Q6H PRN #30 cap 09/22/19 citalopram 20 mg tablet 30 mg PO DAILY #135 tab 07/12/20 cholecalciferol (vitamin D3) 25 25 mcg PO DAILY 03/16/21 mcg (1,000 unit) capsule vitamin B complex 1 tab PO DAILY 03/16/21 Current Visit Medications: Current Medications Generic Name Dose Route Start Last Admin Trade Name Freq PRN Reason Stop Dose Admin Ringer's Solution 1,000 mls @ 125 mls/hr 06/27/21 06:00 06/27/21 07:45 IV 07/26/21 23:59 125 mls/hr INFUSION BETTY Administration IV Miscellaneous Supplies 1 each 06/27/21 06:00 Iv Access IV 07/26/21 23:59 DIRECTED BETTY Sodium Chloride 0 ml 06/27/21 06:00 Normal Saline Flush 10 Ml Syr IV 07/26/21 23:59 PRN PRN Sodium Chloride 0 ml 06/27/21 06:00 Normal Saline 10 Ml Vial IJ 07/26/21 23:59 DIRECTED PRN Sterile Water 0 ml 06/27/21 06:00 Water,Injection,Sterile 10 Ml Vial IJ 07/26/21 23:59 DIRECTED PRN PFSH Active Problems Active Problems: Problem Status Onset Code Abnormal uterine bleeding N93.9 Postmenopausal vaginal bleeding N95.0 Visit for preventive health examination Z00.00 Infiltrating ductal carcinoma of breast, stage 3 07/27/13 C50.919 Morbid obesity E66.01 Depressive disorder 04/26/11 F32.9 Medical History Medical History Biliary colic Cholelithiasis Colorectal polyps Depressive disorder (04/26/11) Family history of colon cancer GERD (gastroesophageal reflux disease) (12/14/14) on daily PPI H/O endometritis pt. states that she has had a history and dr. whitt went in and removed it, so i no longer have it Infiltrating ductal carcinoma of breast, stage 3 (07/27/13) S/P RIGHT LUMPECTOMY 06/22/13 Obesity she will again focus on some weight loss Persistent mood disorder Postmenopausal vaginal bleeding Superficial phlebitis and thrombophlebitis of left leg Syncopal episodes Surgical History Surgical History Breast, Lumpectomy (06/22/13) RIGHT BREAST section X 3 History of laparoscopy per pt by Dr. Dylan Whitt History of lymph node dissection of axilla 2013 History of removal of Port-a-Cath Ligation of fallopian tube S/P colonoscopy (~11/09/18) S/P laparoscopic cholecystectomy (09/22/19) Tobacco Smoking/Tobacco Use Status: Former Tobacco Use Tobacco: How many years used: 31 Passive smoking exposure: Yes Second hand exposure: Yes Alcohol Alcohol Intake: current Alcohol intake frequency: a few times a week Alcohol type: beer Substance Use Substance use: Never Substance use type: does not use Details: alcohol: t-14 Vital Signs and Lab Results Vital Signs Most Recent Vital Signs in EMR: Most Recent Vital Signs Temp Pulse Resp BP Pulse Ox 36 C L 68 18 112/74 99 06/27/21 07:20 06/27/21 07:20 06/27/21 07:20 06/27/21 07:20 06/27/21 07:20 Point of Care Results Point of Care Results: POC- Test(urine) Negative 06/27/21 07:43 Lab Results Blood Type / Crossmatch: Patient ABO/Rh O Positive 06/25/21 08:41 06/25/21 Antibody Screen NEGATIVE 06/25/21 08:41 06/25/21 Complete Blood Count: White Blood Count 5.09 10^3/uL (4.4-10.8) 06/25/21 08:41 06/25/21 Red Blood Count 4.71 10^6/uL (3.93-5.22) 06/25/21 08:41 06/25/21 Hemoglobin 13.4 g/dL (11.2-15.7) 06/25/21 08:41 06/25/21 Hematocrit 42.4 % (36.0-46.0) 06/25/21 08:41 06/25/21 Platelet Count 242 10^3/uL (130-400) 06/25/21 08:41 06/25/21 Complete Metabolic Panel: No Data to Display Liver Function Panel: No Data to Display Coagulation Panel: No Data to Display Cardiac Panel: No Data to Display Arterial Blood Gas: No Data to Display Venous Blood Gas: No Data to Display Pancreas Panel: No Data to Display Thyroid Panel: No Data to Display Infectious Disease: Coronavirus (COVID-19)(PCR) Negative (Negative) 06/25/21 09:10 06/25/21 Coronavirus 2019 Source Nasal/Nares 06/25/21 09:10 06/25/21 Blood Cultures: No Data to Display Toxicology Panel: No Data to Display Panel: No Data to Display Imaging and Studies Imaging and Studies Echocardiogram Summary: 07/22/13 ECHOCARDIOGRAM REPORT PATIENT NAME: MANDEEP MENDOZA #: [id number] ADMITTING PROVIDER: PREMA LEMA, BRITTNI #: [id number] PRIMARY CARE PROVIDER:ROBYN GERMAN OF SERVICE: 07/22/13 : 1965 ____ IN PATIENT __X__ OUT-PATIENT ORDERING PHYSICIAN: Kyle Baker M.D. HEIGHT: 5 FT 3 IN WEIGHT: 185 LBS BSA: 1.9 m2 STUDY INDICATIONS: Breast cancer, prechemotherapy. FINDINGS: LEFT VENTRICLE/LVEF: Normal size and systolic function, normal wall motion, LVEF 65%. RIGHT VENTRICLE: Normal size and systolic function. AORTIC VALVE: Trileaflet, opens well without regurgitation. MITRAL VALVE: Anatomically normal, trace regurgitation. TRICUSPID VALVE: Opens well with trace regurgitation. RSV/PA/RIGHT ATRIAL PRESSURE: RSV pressure 26 mmHg. PULMONIC VALVE: Trace regurgitation. ATRIA: Normal biatrial size. DIASTOLIC INDICES: Normal. GREAT VESSELS: Normal. PERICARDIUM: No effusion. SUMMARY: Rhythm is sinus. Cardiac anatomy and function are normal. Estimated LVEF 65%. No pericardial effusion. Anesthesia Assessment and Plan Anesthesia History Personal History: No History of Anesthesia Complications Family History: No Family History of Anesthesia Complications Exercise Tolerance Exercise Tolerance: Metabolic Equivalents>4 Pertinent Negatives Pertinent Negatives: No Symptoms of GERD, No Major Cardiovascular Symptoms or Complaints, No Major Pulmonary Symptoms or Complaints and No History of CVA/TIA Cardiac & Pulmonary Exam Cardiac Exam: Normal S1/S2 Heart Sounds Pulmonary Exam: Clear Bilateral Breath Sounds Implantable Cardiac Device Does patient have a Pacemaker or an ICD?: No Airway Exam Known Difficult Airway: No Mallampati Class: 1 Mouth Opening: Normal (> 3cm) Thyromental Distance: Greater than 3 cm Neck Range of Motion: Full ROM Neck Circumference: Normal Teeth Condition: Normal Dentition ASA Classification ASA Score: ASA 2 Emergency Case?: No NPO Status NPO Status: NPO Clears >2 hours, Solids >8 hours Status Status: Negative HCG Anesthesia Plan Resuscitation Status: Full Code Anesthesia Technique: General Anesthesia Airway Planned: Natural Airway Monitors Used: Standard Monitors
[2021-06-27 08:20] VITALS: BMI 42.3
--- NOTE | 2021-06-27 09:41 | ENDOMET_PTH ---
PATIENT: Nora Mendieta LOC: [facility] U#:[id number] AGE/SX: 55/F ROOM: RE06/27/[address]: Ayla Pemberton MD : 1965 BED: DIS: 06/27/2021 SPEC #: [id number] RECD: 06/27/21 12:49 STATUS: TOMEKA REQ #: [id number] LEWIS: 06/27/21 09:[address]: Ayla Pemberton DEPT: Surgical Specimen RECD BY: Karla Yousif ENTERED: 06/27/21 12:50 SP TYPE: Endomet OTHR DR: Tyler Kaiser MD Tissues: 1 - ENDOMETRIUM BX/MARIANNA Procedures: GROSS AND MICRO LEVEL 4 Comments: [id number]
[2021-06-27] MEDS: Bupivacaine 0.25% Pres-Free 30 ML VIAL (09:42)
[2021-06-27 09:55] VITALS: BP 102/64; PULSE 68; RESP 16; TEMP 36; O2SAT 94
--- NOTE | 2021-06-27 09:58 | W.ANESPOSTOP ---
Postoperative Evaluation Date, Time and Location Date Performed: 06/27/21 Time Performed: 09:58 Patient Location: Day Surgery Unit Vital Signs Most Recent Imported Vital Signs: Most Recent Vital Signs Temp Pulse Resp BP Pulse Ox 36 C L 68 18 112/74 99 06/27/21 07:20 06/27/21 07:20 06/27/21 07:20 06/27/21 07:20 06/27/21 07:20 Most Recent Manually Entered Vital Signs: Adult Blood Pressure: 102/64 Heart Rate: 67 Respirations: 12 Oxygen Saturation (%): 95 Temperature (C): 36.3 C Pain Score (0-10 Scale): 0 Assessment Mental Status: Awake (Alert & Oriented to Patient Baseline) Airway and Respiratory Function: Patent airway with normal (patient baseline) respiratory exam Cardiovascular Function: Hemodynamically Stable Hydration Status: Adequately Hydrated Nausea & Vomiting: No Nausea or Vomiting Pain: Pain is tolerable per patient Peripheral Nerve Block: Patient did not receive a nerve block
[2021-06-27 09:59] VITALS: BP 102/64; PULSE 67; RESP 12; TEMPC 36.3; O2SAT 95
--- NOTE | 2021-06-27 10:23 | W.PM.OP ---
Date of service: 06/27/21 Time of Service: 10:24 Operative Note Operative Note DATE OF PROCEDURE: 06/27/21 PRE-OP DIAGNOSIS: Abnormal uterine bleeding POST-OP DIAGNOSIS: same PROCEDURE: Hysteroscopy Dilation and Curettage, removal of uterine mass SURGEON: Ayla Pemberton ANESTHESIA TYPE: General:No Airway Refer to Anesthesia Record ESTIMATED BLOOD LOSS: 50 PATHOLOGY: other (Endometrial curettings ) COMPLICATIONS: None Patient was transported to: PACU Patient's condition: stable Indications: Abnormal uterine bleeding for several months, benign endo biopsy but bleeding continues to be irregular. Findings: Normal sized uterus. Endometrium with small mass on the mid anterior wall - ?fibroid vs polyp. Procedure Description: After informed consent was signed the patient was taken to the operating room and given General room air anesthesia. SCDs were placed on her legs. She was prepped and draped in the dorsal lithotomy position in the [facility]. A time out was performed. Her bladder was drained of urine. Exam under anesthesia revealed normal external genitalia, vagina normal for age and a normal sized uterus. A speculum was placed into the vagina to reveal the cervix. The anterior lip of the cervix was grasped with a single tooth tenaculum. A paracervical block was given with 10ml of 0.25% marcaine. The cervix was dilated. The myosure device was assembled and turned on. The scope was inserted through the cervix into the uterine cavity with direct visualization. The previously noted findings were seen. Both ostia were visualized. The myosure light was used to remove the anterior uterine mass until it was flush with the endometrial lining. The scope was removed. A sharp curettage was performed. The tenaculum and speculum were removed. The patient was placed back into the supine position. She was moved to the stretcher and taken to the recovery room in stable condition.
--- NOTE | 2021-06-27 10:47 | W.PM.DSUDISC ---
Discharge Plan Discharge Details Attending Provider: Ayla Pemberton Primary Care Provider: Tyler Kaiser Home Meds and New Rx's Prescriptions: No Action Complex B-100 Tablet Extended Release 1 tab PO DAILY RF: 0 cholecalciferol (vitamin D3) 25 mcg (1,000 unit) capsule 25 mcg PO DAILY RF: 0 citalopram 20 mg tablet 30 mg PO DAILY Qty: 135 RF: 3 acetaminophen [Tylenol] 325 mg capsule 650 mg PO Q6H PRN (Reason: pain) Qty: 30 RF: 0 Discharge Instructions Stand Alone Forms: Anesthesia Discharge Inst., [facility] Post Gynecology Surgery, Sita William ([facility]) DS: Diagnosis Discharge Diagnosis (1) Abnormal uterine bleeding: Status: Acute Asessment and Plan: s/p D&C hysteroscopy. Await path report. F/u 2wks
[2021-06-27 10:55] VITALS: BP 105/74; PULSE 52; RESP 16; TEMP 35.9; O2SAT 100
== END 2021-06-27 11:07 | disposition home or self-care (01) ==
LOC: SUR 07:13
PROVIDERS: PCP Family Medicine; Visit Provider Obstetrics & Gynecology
PROC: 0UDB8ZZ Extraction of Endometrium, Via Natural or Artificial Opening Endoscopic (ICD-10-PCS; CPT 58558; principal; 2021-06-27 08:30)
DX: N85.8 Other specified noninflammatory disorders of uterus (principal); N93.9 Abnormal uterine and vaginal bleeding, unspecified
CPT/HCPCS: 58561; 81025; 88305; J0131; J1100; J1885; J2001; J2250; J2405

== ENCOUNTER 2021-10-05 09:38 | Outpatient (REF) | payer OTHER, SELFPAY ==
--- NOTE | 2021-10-05 08:41 | PAPFT_PTH ---
PATIENT: Nora Mendieta LOC: [facility] U#:[id number] AGE/SX: 56/F ROOM: RE10/05/[address]: Ayla Pemberton MD : 1965 BED: DIS: 10/05/2021 SPEC #: [id number] RECD: 10/05/21 13:08 STATUS: TOMEKA REAshutosh #: [id number] LEWIS: 10/05/21 08:[address]: Ayla Pemberton DEPT: [facility] Cytology RECD BY: Karla Yousif ENTERED: 10/05/21 13:09 SP TYPE: PAPFT ARCENIO DR: Tyler Kaiser MD Tissues: 1 - CX/ENDOCX FOR PAP SMEARS Procedures: PAP THIN PREP/[facility] Screening HPV DNA PROBE Comments: [id number]
== END 2021-10-05 09:39 | disposition home or self-care (01) ==
LOC: LBN 09:38
PROVIDERS: PCP Family Medicine; Visit Provider Obstetrics & Gynecology
DX: Z12.4 Encounter for screening for malignant neoplasm of cervix (principal); Z11.51 Encounter for screening for human papillomavirus (HPV)
CPT/HCPCS: 88142; 87624

== ENCOUNTER 2021-10-12 00:24 | Outpatient (CLI) | payer OTHER, SELFPAY ==
--- NOTE | 2021-10-12 07:00 | DI.MAMMO_ITS ---
Exam(s) MG MAMMO SCREENING 60 MIN DUR EXAM: MG MAMMO SCREENING 60 MIN DUR CLINICAL HISTORY: breast cancer screening,personal h/o breast ca,z85.3 TECHNIQUE: Mammograms were interpreted according to the usual protocol including computer analysis w Prediculous CAD system, tomosynthesis and C-view imaging. COMPARISON: FINDINGS: There is a prior right lumpectomy for breast carcinoma. No dominant mass or clumped microcalcificati on is identified in either breast. The current examination is compared with previous examinations in cluding August 2020 and there has been no gross interval change in appearance in comparison with th e prior studies. IMPRESSION: No specific evidence of malignancy at this time. Routine screening examinations are suggested at yea rly intervals due to the family history of breast carcinoma. BI-RADS Category 1 - Negative Breast Density - Category B - Scattered areas of fibroglandular density
== END 2021-10-12 00:44 ==
PROVIDERS: PCP Family Medicine; Visit Provider Family Medicine
DX: Z85.3 Personal history of malignant neoplasm of breast (principal); Z12.31 Encounter for screening mammogram for malignant neoplasm of breast
CPT/HCPCS: 77063; 77067

== ENCOUNTER → 2022-07-08 02:32 | Outpatient (CLI) | payer OTHER, SELFPAY ==
--- NOTE | 2022-07-08 07:30 | DI.US_ITS ---
Exam(s) US BREAST LT COMPLETE MG MAMMO DIAGNOSTIC BI EXAM: MG MAMMO DIAGNOSTIC BI AND COMPLETE LEFT BREAST ULTRASOUND CLINICAL HISTORY: new left breast lump,H/O RT BREAST CA, C50.919,N63.20. TECHNIQUE: Bilateral CC and MLO mammographic images were obtained with 3D tomosynthesis technique an d utilizing computer aided detection (CAD). Also exaggerated CC view of the left breast. Also performed complete left breast ultrasound including all 4 quadrants as well as the left axilla. COMPARISON: Prior mammograms were reviewed, the most recent being 10/12/2021. This patient has had prior right breast lumpectomy in 2012 FINDINGS: DIAGNOSTIC BILATERAL MAMMOGRAM: Right breast lumpectomy site remains stable as do findings of fat necrosis more anteriorly in the rig ht breast. No malignant-appearing microcalcifications in the right breast In the left breast there is subtle density in the upper outer quadrant having benign appearance but m ore evident than on prior studies. No malignant-appearing microcalcification groups in this region. No new architectural distortion or skin thickening-traction. We proceeded with ultrasound of the left breast. COMPLETE LEFT BREAST ULTRASOUND: At the 2 o'clock position there is a wider than taller benign-appear ing 9 x 4 millimeter nodule which has appearance of a probable conglomeration microcysts. No other f ocal findings in all 4 quadrants. No significant adenopathy in the ipsilateral left axilla. IMPRESSION: Stable appearing right breast lumpectomy site Benign-appearing findings in left breast 2 o'clock position as described above. Appropriate follow-up is repeat left breast imaging in 6 months to include repeat left breast ultraso und and mammogram.. The patient was informed of the findings and follow-up recommendations prior to leaving the [facility] today. BI-RADS Category 3 - 6 month - Probably Benign Finding: Recommend follow-up mammography in 6 months Breast Density - Category B - Scattered areas of fibroglandular density Breast density Category C or D implies that the patient has dense breast tissue. Dense breast tissue can make it harder to find cancer on a mammogram. Dense breast tissue is also associated with an incr eased risk of breast cancer. This information about the result of the mammogram report was provided to the patient to raise their awareness. Use this report when you speak with the patient about their risks for breast cancer, which includes their family history. At that time, you may recommend additional screening tests (Ultrasoun d or MRI) as these tests may add significant information. A negative radiographic report should not delay biopsy if a dominant or clinically suspicious mass is present. Up to ten percent of cancers are not identified on mammography. A negative report may reinforce clinical impression. Adenosis and dense breasts may obscure an underlying neoplasm. False positive reports average 6 to 10%. Patient will receive a letter notifying them of these results.
== END ==
PROVIDERS: PCP Family Medicine; Visit Provider Obstetrics & Gynecology
DX: N64.1 Fat necrosis of breast (principal); Z98.890 Other specified postprocedural states; Z85.3 Personal history of malignant neoplasm of breast; N63.21 Unspecified lump in the left breast, upper outer quadrant; N60.02 Solitary cyst of left breast
CPT/HCPCS: 76642; 77062; 77066; G0279

== ENCOUNTER 2023-01-07 01:06 | Outpatient (CLI) | payer OTHER, SELFPAY ==
--- NOTE | 2023-01-07 07:30 | DI.US_ITS ---
Exam(s) US BREAST LT COMPLETE MG MAMMO DIAGNOSTIC UNI EXAM: MG MAMMO DIAGNOSTIC UNI-LEFT AND COMPLETE LEFT BREAST ULTRASOUND CLINICAL HISTORY: f/u mammo, 6 mo f/u, r92.8,lt breast nodule. TECHNIQUE: UNILATERAL LEFT BREAST CC AND MLO mammographic images were obtained with 3D tomosynthesis technique and utilizing computer aided detection (CAD). Also performed complete left breast ultrasound including all 4 quadrants as well as the left axilla. COMPARISON: Prior mammograms were reviewed. FINDINGS: DIAGNOSTIC LEFT BREAST MAMMOGRAM: No new masses. The asymmetric density upper-outer quadrant remains unchanged and benign appearance. No malignant-appearing microcalcification groups. No new architectural distortion or skin thickening -traction. COMPLETE LEFT BREAST ULTRASOUND: At the 5 o'clock position there is a new small 5 millimeter benign microcyst. With respect of the previously described finding at the 1-2 o'clock position, it remains unchanged in size and configuration and has the appearance of a small conglomeration microcysts. No new solid lesions evident. No worrisome areas of decreased through transmission. Scanning of the ipsilateral left axilla is negative for adenopathy. IMPRESSION: 1. No radiographic evidence of malignancy 2. Stable benign-appearing ultrasound finding at the 1-2 o'clock position, as described above. Appropriate follow-up is to keep this patient on her yearly mammogram schedule which is in 6 months f rom now and at that time she should undergo repeat ultrasound examination.. The patient was informed of the findings and follow-up recommendations by myself prior to leaving the department today. BI-RADS Category 3 - 6 month - Probably Benign Finding: Recommend follow-up mammography in 6 months Breast Density - Category B - Scattered areas of fibroglandular density Breast density Category C or D implies that the patient has dense breast tissue. Dense breast tissue can make it harder to find cancer on a mammogram. Dense breast tissue is also associated with an incr eased risk of breast cancer. This information about the result of the mammogram report was provided to the patient to raise their awareness. Use this report when you speak with the patient about their risks for breast cancer, which includes their family history. At that time, you may recommend additional screening tests (Ultrasoun d or MRI) as these tests may add significant information. A negative radiographic report should not delay biopsy if a dominant or clinically suspicious mass is present. Up to ten percent of cancers are not identified on mammography. A negative report may reinforce clinical impression. Adenosis and dense breasts may obscure an underlying neoplasm. False positive reports average 6 to 10%. Patient will receive a letter notifying them of these results.
== END 2023-01-07 01:26 ==
PROVIDERS: PCP Family Medicine; Visit Provider Obstetrics & Gynecology
DX: R92.8 Other abnormal and inconclusive findings on diagnostic imaging of breast (principal); Z12.31 Encounter for screening mammogram for malignant neoplasm of breast
CPT/HCPCS: 76642; 77061; 77065; G0279

== ENCOUNTER → 2023-07-24 00:05 | Outpatient (CLI) | payer OTHER, SELFPAY ==
--- NOTE | 2023-07-24 08:00 | DI.MAMMO_ITS ---
Exam(s) MG MAMMO SCREENING 60 MIN DUR EXAM: MG MAMMO SCREENING 60 MIN DUR CLINICAL HISTORY: breast cancer screening,personal h/o breast ca,z12.39 TECHNIQUE: Mammograms were interpreted according to the usual protocol including computer analysis w [employer] CAD system, tomosynthesis and C-view imaging. COMPARISON: 2013 through December 2022 FINDINGS: The breasts are composed of scattered fibroglandular densities, Breast Density category B. No suspicious masses or suspicious microcalcifications are seen. Scarring and areas of fat necrosis are again noted in the right breast. No abnormalities seen in the left breast. No skin thickening or abnormal axillary lymph nodes are seen. There has been no significant change from prior exams. IMPRESSION: BI-RADS Category 2 - Negative Mammogram with benign findings. Yearly screening mammography is recomm ended. Breast Density - Category B, scattered fibroglandular densities. A negative radiographic report should not delay biopsy if a dominant or clinically suspicious mass is present. Up to ten percent of cancers are not identified on mammography. A negative report may reinforce clinical impression. Adenosis and dense breasts may obscure an underlying neoplasm. False positive reports average 6 to 10%. Patient will receive a letter notifying them of these results.
== END ==
PROVIDERS: PCP Family Medicine; Visit Provider Obstetrics & Gynecology
DX: Z12.31 Encounter for screening mammogram for malignant neoplasm of breast (principal)
CPT/HCPCS: 77063; 77067

== ENCOUNTER → 2023-08-12 02:35 | Outpatient (CLI) | payer OTHER, SELFPAY ==
--- NOTE | 2023-08-12 11:12 | DI.RAD_ITS ---
Exam(s) XR MANDIBLE COMPLETE XR TMJ BL EXAM: XR MANDIBLE COMPLETE CLINICAL HISTORY: jaw pain, subcutaneous nodule in chin,m26.609. TECHNIQUE: 2D digital imaging was performed. Ten views. COMPARISON: CR XR TMJ BL from 08/12/2023 FINDINGS: BONES: No evidence of fracture. The sinuses appear grossly clear. JOINTS: No evidence of temporomandibular joint dislocation or subluxation. SOFT TISSUES: Unremarkable. IMPRESSION: Unremarkable radiographs of the mandible and temporomandibular joints.. DATA REPOSITORY: RADIATION DOSE DELIVERED:
== END ==
PROVIDERS: PCP Family Medicine; Visit Provider Nurse Practitioner Family
DX: R68.84 Jaw pain (principal)
CPT/HCPCS: 70110; 70330

== ENCOUNTER 2023-11-28 05:13 | Outpatient (CLI) | payer OTHER, SELFPAY ==
[2023-11-28 17:07] LABS: HCT 39.8 % (36.0-46.0); HGB 13.3 g/dL (11.2-15.7); MCH 29.4 pg (27.0-33.0); MCHC 33.4 % (32.0-36.0); MCV 88 fL (80-95); MPV 9.4 fL (8.0-11.0); Platelet Count 275 10^3/uL (130-400); RBC 4.52 10^6/uL (3.93-5.22); RDW 14.6 % (11.7-14.6); RDW-SD 47.1 fL; WBC 6.01 10^3/uL (4.4-10.8)
[2023-11-28 18:07] LABS: Anion Gap 12.7 mmol/L (3-11); BUN 19 mg/dL (7-18); CO2 24.3 mmol/L (21.0-32.0); Calcium 9.8 mg/dL (8.5-10.1); Calculated LDL 119 mg/dL (<100); Chloride 101 mmol/L (98-107); Cholesterol 205 mg/dL (<200); Estimated GFR 65.71 (mL/min/1.73m2); Glucose 85 mg/dL (74-106); HDL Cholesterol 70 mg/dL (40-60); Potassium 3.9 mmol/L (3.5-5.1); Sodium 138 mmol/L (136-145); TSH (W/Ref FT4) 2.35 uIU/mL (0.36-3.74); Triglyceride 81 mg/dL (<150)
[2023-11-28 18:11] LABS: Hemoglobin A1C 5.4 % (<5.7)
== END 2023-11-28 05:14 | disposition home or self-care (01) ==
PROVIDERS: PCP Family Medicine; Visit Provider Nurse Practitioner Family
DX: Z00.00 Encounter for general adult medical examination without abnormal findings (principal); F32.9 Major depressive disorder, single episode, unspecified; M26.609 Unspecified temporomandibular joint disorder, unspecified side; K21.9 Gastro-esophageal reflux disease without esophagitis; E66.9 Obesity, unspecified
CPT/HCPCS: 36415; 80048; 80061; 85027; 83036; 84443

== ENCOUNTER 2024-03-12 07:59 | Day surgery (SDC) | payer OTHER, SELFPAY ==
--- NOTE | 2024-03-11 12:31 | COLE_ITS ---
Date of service: 03/12/24 Time of Service: 09:50 Colonoscopy Report Date of procedure: 03/12/24 Pre-op diagnosis general: Second-degree family member with colorectal cancer/CRC screen Post-op diagnosis procedure note: other (Internal hemorrhoidal tags) Surgeon: Flaquita Santiago Anesthesia Type: General:No Airway Estimated blood loss (mL): 0 Pathology: none sent Complications: None Disposition: same day Prep: Miralax/Dulcolax Retraction Time: 14 Procedure Description: After informed consent was obtained, explaining risks of the procedure, including but not limits to: bleeding, infections, complications of anesthesia, perforations (which may require antibiotics and /or surgery and stay in the hospital), and abdominal pain/cramping. The patient was taken to the procedure room and placed in a left decubitous position. Monitors were applied and a time out was done. The patients name, date of , procedure, allergies to medications and metal in their body was reviewed. The patient was then sedated. Once sedated and comfortable a rectal exam was done. External exam was normal. Internal exam revealed a normal sphincter tone and no palpable masses. The previously lubricated Olympus scope was then introduced (see RN notes for scope number) and retrofelexed. no internal hemorrhoids were identified. There were a few internal hemorrhoidal tags the scope was then advanced to the cecum without difficulty. The TI and appendiceal orifice were identified. The scope was then slowly retracted over 14 minutes back into the rectum. Polyps: No. Diverticula: No. The mucosa is pink and healthy w/ a normal vascular pattern. The scope was removed, and the patient was woken up and taken back to Same day surgery in stable condition. The patient tolerated the procedure well and there were no immediate com plications. Follow up: The patient should follow up in 10 years, unless they develop changes in bowel habits or other new gastrointestinal complaints. [place] Bowel Prep [place] Bowel Prep Right Colon: 3 Left Colon: 3 Transverse Colon: 3 Total Score: 9
--- NOTE | 2024-03-11 12:32 | PDOC.DSDIS_ITS ---
Date of service: 03/12/24 Time of Service: 09:53 Discharge Plan Disposition Patient Disposition: Home Condition: Good Discharge Details Reason For Visit: CRC screening Attending Provider: Flaquita Santiago Primary Care Provider: Tyler Kaiser Home Meds and New Rx's Prescriptions: Continued multivitamin Powder In Packet 1 packet PO DAILY cyclobenzaprine 5 mg tablet 5 - 10 mg PO TID PRN (Reason: muscle spasm) Qty: 60 0RF Rx Instructions: Take 1 tablet by mouth three times a day as needed for back pain phentermine 37.5 mg capsule 37.5 mg PO DAILY Qty: 30 2RF Rx Instructions: must administer 2 hours after breakfast fluoxetine 20 mg capsule 20 mg PO DAILY Qty: 90 1RF valacyclovir [Valtrex] 1 gram tablet 2,000 mg PO BID PRN (Reason: cold sores) Qty: 30 5RF Discontinued bisacodyl [Dulcolax (bisacodyl)] 5 mg tablet,delayed release (DR/EC) 5 mg PO ONCE Qty: 4 0RF Rx Instructions: Take per colonoscopy instructions provided by ordering providers office polyethylene glycol 3350 17 gram/dose powder 17 g PO ONCE Qty: 238 0RF Rx Instructions: Take per colonoscopy instructions provided by ordering providers office Discharge Instructions Additional Instructions: DSU Colonoscopy Post- Op Instructions Instructions for Everyone who is given Anes thesia: For your safety, please do the following for the next twenty-four (24) hours: *Do Not operate a motor vehicle (car, truck, motorcycle, etc.) *Do Not drink alcoholic beverages or use any recreational drugs for the first 24 hours or while taking pain medications. The medications in your body may have a reaction that can be dangerous. *Do Not make any important decisions or sign any important papers. Findings: Normal Follow up: Repeat in 10 years time 1. No lifting over 20 pounds or strenuous activity for the first 24 hours after your procedure. After 24 hours there are no restrictions on your activity but you may feel fatigued for a few days. 2. After you arrive home you may have a light meal and return to your normal diet as you can tolerate it without feeling sick to your stomach. 3. You may have a bloated, gaseous feeling in your belly (abdomen) after a colonoscopy. Passing gas and belching will help. Walking or lying down on your left side with your knees flexed may relieve the discomfort. Call the office at [phone] (Office) or [phone] (Hospital) right away if you notice any of the following: a.Vomiting of blood or ?coffee ground stools?. b.Rectal bleeding 1Tbsp, blood clots or continuous bleeding. c.Severe belly (abdominal) pain. d.A hard distended belly (abdomen) and an inability to pass gas. 4. Please don?t expect to have a normal BM (bowel movement) for 2-3 days after your procedure. 5. If there are questions regarding the findings of your procedure, please contact your doctor 6. If you are unable to contact your doctor with a problem, contact the hospital at [phone]. 7. Continue all your regular medications unless directed otherwise. I understand the above instructions and have no questions. Signature of Patient or Adult Escort Name of Responsible Adult Escort Signature of Nurse Date/Time Activity:: see above Diet:: see above Discharge Orders Discharge Orders: Discharge Order (Routine); Ordered 03/12/24 Ordered By: Flaquita Santiago DS: Diagnosis Discharge Diagnosis (1) Superficial phlebitis and thrombophlebitis of left leg: (2) Obesity: (3) GERD (gastroesophageal reflux disease): (4) Biliary colic: (5) Colorectal polyps: Asessment and Plan: The patient is seen and examined after their colonoscopy.? The patient has been able to pass gas.? They are not having abdominal pain.? They have been able to tolerate liquids and a snack.? They do not have any nausea or vomiting.? They are not having any chest pain or shortness of breath.??? They are not having any rectal bleeding. Their vital signs have been stable-see nursing notes. We discussed findings during their colonoscopy, and any biopsies that were done/polyps that were removed. The patient will be sent a letter with any biopsy results, and when to repeat the colonoscopy.-see discharge instructions. Patient was given explicit instructions to follow-up regarding colonoscopy-refer to discharge instructions.? We reviewed resumption of medications. Patient verbalized understanding and discharged in stable and satisfactory condition- See nursing notes. (6) Infiltrating ductal carcinoma of breast, stage 3:
[2024-03-12 08:25] VITALS: BP 117/84; PULSE 68; RESP 16; TEMP 35.6; O2SAT 99
[2024-03-12] MEDS: Lactated Ringers 1,000 ML 80 ML IV (08:48)
--- NOTE | 2024-03-12 08:59 | ANES.PREOP_ITS ---
General Info Date of Service Date Performed: 03/12/24 Height: 5 ft 2.5 in Weight: 104.78 kg Body Mass Index (BMI): 41.5 Surgical Procedure: Operation Date: 03/12/24 09:05 Proposed Procedure Side Surgeon lora Santiago, DO Meds Allergies and Home Medications Allergies Allergy/AdvReac Type Severity Reaction Status Date / Time No Known Drug Allergies Allergy No Verified 03/12/24 08:37 allergies Home Medication ?Medication ?Instructions ?Recorded multivitamin 1 packet PO DAILY 10/05/21 valacyclovir 1 gram tablet 2,000 mg (2 x 1 gram) PO BID PRN 04/28/22 (Valtrex) cold sores #30 tabs cyclobenzaprine 5 mg tablet 5 - 10 mg (1 - 2 x 5 mg) PO TID 11/11/23 PRN muscle spasm #60 tabs fluoxetine 20 mg capsule 20 mg PO DAILY #90 caps 01/06/24 phentermine 37.5 mg capsule 37.5 mg PO DAILY #30 caps 01/06/24 Current Visit Medications: Current Medications Generic Name Dose Route Start Last Admin Trade Name Freq PRN Reason Stop Dose Admin Hyoscyamine Sulfate 0.125 mg 03/12/24 00:29 Hyoscyamine 0.125 Mg Sl/Oral/Chew SL 04/11/24 00:28 DIRECTED PRN Ringer's Solution 1,000 mls @ 80 mls/hr 03/12/24 06:00 03/12/24 08:48 IV 03/12/24 23:59 80 mls/hr INFUSION BETTY Administration IV Miscellaneous Supplies 1 each 03/12/24 06:00 Iv Access IV 03/12/24 23:59 DIRECTED BETTY Ondansetron HCl 4 mg 03/12/24 00:29 Ondansetron 4 Mg/2 Ml Vial IVP 04/11/24 00:28 Q4H PRN PRN Nausea / Vomiting Sodium Chloride 0 ml 03/12/24 06:00 Normal Saline Flush 10 Ml Syr IV 03/12/24 23:59 PRN PRN Sodium Chloride 0 ml 03/12/24 06:00 Normal Saline 10 Ml Vial IJ 03/12/24 23:59 DIRECTED PRN Sterile Water 0 ml 03/12/24 06:00 Water,Injection,Sterile 10 Ml Vial IJ 03/12/24 23:59 DIRECTED PRN [facility] Active Problems Active Problems: Problem Status Onset Code TMJ (temporomandibular joint disorder) Acute M26.609 Bilateral knee pain Acute M25.561, M25.562 Depressive disorder Acute 04/26/11 F32.9 Medical History Medical History (Updated 03/11/24 @ 12:33 by Flaquita Santiago DO) Breast cancer screening Left breast lump Hx of phlebitis Negative APC testing, negative eval with hematology 04/2023; no need for anticoagulation. Postmenopausal vaginal bleeding Biliary colic Syncopal episodes Obesity she will again focus on some weight loss Colorectal polyps H/O endometritis pt. states that she has had a history and dr. whitt went in and removed it, so i no longer have it Family history of colon cancer Second-degree family member with colorectal cancer. Routine screening for colon cancer and not increased surveillance Superficial phlebitis and thrombophlebitis of left leg Infiltrating ductal carcinoma of breast, stage 3 (07/27/13) S/P RIGHT LUMPECTOMY 06/22/13 GERD (gastroesophageal reflux disease) (12/14/14) on daily PPI Surgical History Surgical History (Updated 03/10/24 @ 11:28 by Luis Alberto Ferguson) Hx of cholecystectomy Hx of section S/P laparoscopic cholecystectomy (09/22/19) History of lymph node dissection of axilla 2012 S/P colonoscopy (~11/09/18) History of removal of Port-a-Cath History of laparoscopy per pt by Dr. Dylan Whitt Ligation of fallopian tube section X 3 Breast, Lumpectomy (06/22/13) RIGHT BREAST Tobacco Smoking/Tobacco Use Status: Former Tobacco Use Smokeless tobacco user: other (Cigarettes) Passive smoking exposure: No Second hand exposure: Yes Alcohol Alcohol Intake: current Alcohol intake frequency: a few times a week Alcohol type: beer Substance Use Substance use: Never Substance use type: does not use Vital Signs and Lab Results Vital Signs Most Recent Vital Signs in EMR: Most Recent Vital Signs Temp Pulse Resp BP Pulse Ox 35.6 C L 68 16 117/84 99 03/12/24 08:25 03/12/24 08:25 03/12/24 08:25 03/12/24 08:25 03/12/24 08:25 Lab Results Blood Type / Crossmatch: No Data to Display Complete Blood Count: No Data to Display Complete Metabolic Panel: No Data to Display Liver Function Panel: No Data to Display Coagulation Panel: No Data to Display Cardiac Panel: No Data to Display Arterial Blood Gas: No Data to Display Venous Blood Gas: No Data to Display Pancreas Panel: No Data to Display Thyroid Panel: No Data to Display Infectious Disease: No Data to Display Blood Cultures: No Data to Display Toxicology Panel: No Data to Display Imaging and Studies Imaging and Studies Study information below may be from another EMR and interpreted by another provider. Please see original notes in EMR for more complete details. Echocardiogram Summary: 07/22/13 ECHOCARDIOGRAM REPORT PATIENT NAME: MANDEEP MENDOZA #: [id number] ADMITTING PROVIDER: PREMA LEMA, BRITTNI #: [id number] PRIMARY CARE PROVIDER:ROBYN GERMAN OF SERVICE: 07/22/13 : 1965 ____ IN PATIENT __X__ OUT-PATIENT ORDERING PHYSICIAN: Kyle Baker M.D. HEIGHT: 5 FT 3 IN WEIGHT: 185 LBS BSA: 1.9 m2 STUDY INDICATIONS: Breast cancer, prechemotherapy. FINDINGS: LEFT VENTRICLE/LVEF: Normal size and systolic function, normal wall motion, LVEF 65%. RIGHT VENTRICLE: Normal size and systolic function. AORTIC VALVE: [place], opens well without regurgitation. MITRAL VALVE: Anatomically normal, trace regurgitation. TRICUSPID VALVE: Opens well with trace regurgitation. RSV/PA/RIGHT ATRIAL PRESSURE: RSV pressure 26 mmHg. PULMONIC VALVE: Trace regurgitation. ATRIA: Normal biatrial size. DIASTOLIC INDICES: Normal. GREAT VESSELS: Normal. PERICARDIUM: No effusion. SUMMARY: Rhythm is sinus. Cardiac anatomy and function are normal. Estimated LVEF 65%. No pericardial effusion. Anesthesia Assessment and Plan Anesthesia History Personal History: No History of Anesthesia Complications Family History: No Family History of Anesthesia Complications Exercise Tolerance Exercise Tolerance: Metabolic Equivalents>4 Pertinent Negatives Pertinent Negatives: No Symptoms of GERD, No Major Cardiovascular Symptoms or Complaints and No Major Pulmonary Symptoms or Complaints Cardiac & Pulmonary Exam Cardiac Exam: Normal S1/S2 Heart Sounds Pulmonary Exam: Clear Bilateral Breath Sounds Implantable Cardiac Device Does patient have a Pacemaker or an ICD?: No Airway Exam Known Difficult Airway: No Mallampati Class: 1 Mouth Opening: Normal (> 3cm) Thyromental Distance: Greater than 3 cm Neck Range of Motion: Full ROM Neck Circumference: Normal Teeth Condition: Normal Dentition ASA Classification ASA Score: ASA 3 Emergency Case?: No NPO Status NPO Status: NPO Clears >2 hours, Solids >8 hours Anesthesia Plan Resuscitation Status: Full Code Anesthesia Technique: General Anesthesia Airway Planned: Natural Airway Monitors Used: Standard Monitors
[2024-03-12 09:00] VITALS: BMI 41.5
[2024-03-12 09:46] VITALS: BP 112/72; PULSE 64; RESP 18; TEMP 35.8; O2SAT 99
--- NOTE | 2024-03-12 09:53 | W.ANESPOSTOP ---
Postoperative Evaluation Date, Time and Location Date Performed: 03/12/24 Time Performed: 09:48 Patient Location: Day Surgery Unit Vital Signs Most Recent Imported Vital Signs: Most Recent Vital Signs Temp Pulse Resp BP Pulse Ox 35.8 C L 64 18 112/72 99 03/12/24 09:46 03/12/24 09:46 03/12/24 09:46 03/12/24 09:46 03/12/24 09:46 Pain Score Most Recent Pain Score: Most Recent Pain Score Pain Level 0 03/12/24 09:46 Assessment Mental Status: Arousable with meaningful communication Airway and Respiratory Function: Patent airway with normal (patient baseline) respiratory exam Cardiovascular Function: Hemodynamically Stable Hydration Status: Adequately Hydrated Nausea & Vomiting: No Nausea or Vomiting Pain: Pt. Denies Any Pain Peripheral Nerve Block: Patient did not receive a nerve block
[2024-03-12 10:16] VITALS: BP 121/79; PULSE 56; RESP 16; TEMP 36; O2SAT 97
== END 2024-03-12 11:03 | disposition home or self-care (01) ==
PROVIDERS: PCP Family Medicine; Visit Provider Surgery
PROC: 0DJD8ZZ Inspection of Lower Intestinal Tract, Via Natural or Artificial Opening Endoscopic (ICD-10-PCS; CPT 45378; principal; 2024-03-12 09:00)
DX: Z12.11 Encounter for screening for malignant neoplasm of colon; K64.8 Other hemorrhoids; Z80.0 Family history of malignant neoplasm of digestive organs
CPT/HCPCS: 45378; J2001; J2704

== ENCOUNTER 2024-11-12 00:11 | Outpatient (CLI) | payer BC, SELFPAY ==
--- NOTE | 2024-11-12 07:15 | DI.MAMMO_ITS ---
Exam(s) MG MAMMO SCREENING 60 MIN DUR EXAM: MG MAMMO SCREENING 60 MIN DUR CLINICAL HISTORY: breast cancer screening,H/O BREAST CA,Z85.3. TECHNIQUE: Bilateral full field digital CC and MLO mammographic images were obtained with 3D tomosyn thesis and utilizing computer aided detection (CAD). COMPARISON: Prior mammograms were reviewed. FINDINGS: No new significant left breast findings. In the left breast there is a peripherally calcified oil cyst and other benign-appearing micro and ma supervisor microfilm duplicating unit calcifications at the lumpectomy site. However, since most recent mammogram of June 2023 the re is some increasing intraductal linear and slightly branching calcification, possibly significant. There is no associated new mass density. IMPRESSION: 1. No radiographic evidence of malignancy in left breast. 2. Increasing linear/branching calcification at the lumpectomy site of the right breast. This may be caused by various factors including benign post lumpectomy changes such as fat necrosis or secretory calcifications but cannot exclude ductal carcinoma in situ. Recommend follow-up MRI BI-RADS Category 0 - Incomplete: Need additional imaging evaluation Breast Density - Category B - Scattered areas of fibroglandular density Breast density Category C or D implies that the patient has dense breast tissue. Dense breast tissue can make it harder to find cancer on a mammogram. Dense breast tissue is also associated with an incr eased risk of breast cancer. This information about the result of the mammogram report was provided to the patient to raise their awareness. Use this report when you speak with the patient about their risks for breast cancer, which includes their family history. At that time, you may recommend additional screening tests (Ultrasoun d or MRI) as these tests may add significant information. A negative radiographic report should not delay biopsy if a dominant or clinically suspicious mass is present. Up to ten percent of cancers are not identified on mammography. A negative report may reinforce clinical impression. Adenosis and dense breasts may obscure an underlying neoplasm. False positive reports average 6 to 10%. Patient will receive a letter notifying them of these results.
== END 2024-11-12 00:31 ==
LOC: DI 00:12
PROVIDERS: PCP Nurse Practitioner Family; Visit Provider Nurse Practitioner Family
DX: Z85.3 Personal history of malignant neoplasm of breast (principal); Z12.31 Encounter for screening mammogram for malignant neoplasm of breast; R92.323 Mammographic fibroglandular density, bilateral breasts
CPT/HCPCS: 77063; 77067

== ENCOUNTER 2025-01-13 01:01 | Outpatient (CLI) | payer BC, SELFPAY ==
[2025-01-13 09:12] LABS: ALT 27 U/L (14-59); AST 19 U/L (15-37); Albumin 3.8 g/dL (3.4-5.0); Alkaline Phosphatase 123 U/L (46-116); Anion Gap 6.9 mmol/L (3-11); BUN 23 mg/dL (7-18); Bilirubin, Total 0.6 mg/dL (0.2-1.0); CO2 28.1 mmol/L (21.0-32.0); CREATININE 0.8 mg/dL (0.55-1.02); Calcium 9.5 mg/dL (8.5-10.1); Calculated LDL 98 mg/dL (<100); Chloride 102 mmol/L (98-107); Cholesterol 167 mg/dL (<200); Estimated GFR 85.35 (mL/min/1.73m2); Glucose 84 mg/dL (74-106); HDL Cholesterol 59 mg/dL (>or=50); Potassium 4.2 mmol/L (3.5-5.1); Sodium 137 mmol/L (136-145); Total Protein 7.5 g/dL (6.4-8.2); Triglyceride 53 mg/dL (<150)
== END 2025-01-13 01:02 | disposition home or self-care (01) ==
LOC: LBO 01:02
PROVIDERS: PCP Nurse Practitioner Family; Visit Provider Nurse Practitioner Family
DX: Z00.00 Encounter for general adult medical examination without abnormal findings (principal); F32.9 Major depressive disorder, single episode, unspecified; E66.9 Obesity, unspecified
CPT/HCPCS: 36415; 80053; 80061

== ENCOUNTER 2025-01-13 09:19 | Outpatient (REF) | payer BC, SELFPAY ==
--- NOTE | 2025-01-13 09:15 | PAPFT_PTH ---
PATIENT: Nora Mendieta LOC: [facility] U#:[id number] AGE/SX: 59/F ROOM: RE01/13/[address]: Ayla Pemberton MD : 1965 BED: DIS: 01/13/2025 SPEC #: [id number] RECD: 01/13/25 13:08 STATUS: TOMEKA CHENG #: [id number] LEWIS: 01/13/25 09:[address]: Ayla Pemberton DEPT: [facility] Cytology RECD BY: Karla Yousif ENTERED: 01/13/25 13:08 SP TYPE: PAPFT OTHR DR: Khadijah Rees, MAXILLOFACIAL PROSTHODONTIST Tissues: 1 - CX/ENDOCX FOR PAP SMEARS Procedures: PAP THIN PREP/U[facility] Screening HPV DNA PROBE Comments: [id number] (HPV 16 & 18/45)
== END 2025-01-13 09:20 | disposition home or self-care (01) ==
LOC: LBN 09:19
PROVIDERS: PCP Nurse Practitioner Family; Visit Provider Obstetrics & Gynecology
DX: Z85.3 Personal history of malignant neoplasm of breast (principal); Z11.51 Encounter for screening for human papillomavirus (HPV); Z01.419 Encounter for gynecological examination (general) (routine) without abnormal findings
CPT/HCPCS: 88142; 87624

== ENCOUNTER 2025-05-19 03:36 | Outpatient (CLI) | payer BC, SELFPAY ==
--- NOTE | 2025-05-19 08:15 | DI.DEXA_ITS ---
Exam(s) XR DEXA BONE DENSITY W/WO MARISOL EXAM: XR DEXA BONE DENSITY W/WO MARISOL CLINICAL HISTORY: family hx and cancer treatment hx,postmenopausal status,z78.0 TECHNIQUE: [employer] C densitometer analysis of left hip, lumbar spine and right forearm. Lateral survey image of the thoracic and lumbar spine. COMPARISON: No exams were available for comparison FINDINGS: Lateral view of the thoracic and lumbar spine shows no evidence of compression fractures. Bone mineral density measurements of the lumbar spine correspond to a total T- score of -0.6, in the normal range. Bone mineral density measurements of the left hip correspond to a total T-score of -0.1, in the normal range. The femoral neck T-score is -0.2. Theright forearm bone mineral density measurements correspond to a T-score of the distal 3rd of 0.4, in the normal range. IMPRESSION: Normal bone mineral density.
== END 2025-05-19 03:56 ==
LOC: DI 03:37
PROVIDERS: PCP Nurse Practitioner Family; Visit Provider Nurse Practitioner Family
DX: Z78.0 Asymptomatic menopausal state (principal)
CPT/HCPCS: 77080